=== PATIENT | male | born 1955 | race Caucasian/White ===

== ENCOUNTER 2020-11-13 07:29 | Outpatient (REF) | payer OTHER, SELFPAY ==
[2020-11-13 08:35] LABS: MANUAL DIFF FLAG NO
[2020-11-13 08:41] LABS: Basophils Percent Auto 0.4 % (0-2); Eosinophils Absolute Auto 0.1 X10*3/uL (0.0-0.4); Eosinophils Percent Auto 1.9 % (0-4); Hematocrit 42.2 % (42-52); Hemoglobin 13.8 g/dl (14.0-18.0); Imm Gran Abs Auto 0.01 X10*3/uL (0.00-0.03); Imm Gran Pct Auto 0.1 % (0.0-0.4); Lymphocytes Absolute Auto 2.4 X10*3/uL (1.2-4.9); Lymphocytes Percent Auto 33.9 % (20-40); Mean Corpuscular HGB Conc 32.7 g/dl (31.0-36.0); Mean Corpuscular Hemoglobin 31.3 pg (27.0-33.0); Mean Corpuscular Volume 95.7 fL (80-98); Mean Platelet Volume 9.2 fL (9.4-12.4); Monocytes Absolute Auto 0.5 X10*3/uL (0.1-1.2); Monocytes Percent Auto 7.2 % (2-11); Neutrophils Absolute Auto 3.9 X10*3/uL (2.0-8.3); Neutrophils Percent Auto 56.5 % (45-73); Platelet Count 229 X10*3/uL (160-400); Red Blood Count 4.41 X10*6/uL (4.60-5.80); Red Cell Distribution Width 12.3 % (11.0-16.0); White Blood Count 6.9 X10*3/uL (4.8-10.8)
[2020-11-13 09:02] LABS: Alanine Aminotransferase 11 U/L (0-40); Albumin Level 4.3 g/dL (3.5-5.0); Alkaline Phosphatase 87 U/L (39-117); Anion Gap 12 (12-20); Aspartate Amino Transferase 15 U/L (5-37); Bilirubin Direct 0.5 mg/dL (0.0-0.5); Blood Urea Nitrogen 15 mg/dL (9-16); Calcium 8.8 mg/dL (8.4-10.2); Carbon Dioxide 26 mmol/L (22-29); Chloride 105 mmol/L (96-108); Cholesterol 109 mg/dL; Estimated Glomerular Filt Rate > 60; Glucose Random 129 mg/dL (60-115); HDL Cholesterol 49 mg/dL; LDL Cholesterol Calculated 40 mg/dl; Potassium 4.4 mmol/l (3.3-5.1); Sodium 139 mmol/L (135-145); Total Protein 6.9 g/dL (6.5-8.0); Triglycerides 102 mg/dL
[2020-11-13 09:14] LABS: Estimated Average Glucose 126 mg/dL
== END 2020-11-13 07:30 | disposition home or self-care (01) ==
LOC: HO.LAB 07:29
PROVIDERS: Visit Provider Internal Medicine
DX: E11.9 Type 2 diabetes mellitus without complications (principal)
CPT/HCPCS: 36415; 80048; 80061; 80076; 83036; 85025

== ENCOUNTER 2021-04-23 07:34 | Outpatient (REF) | payer OTHER, SELFPAY ==
[2021-04-23 08:42] LABS: Hematocrit 42.6 % (42-52); Mean Corpuscular HGB Conc 32.9 g/dl (31.0-36.0); Mean Corpuscular Hemoglobin 31.2 pg (27.0-33.0); Mean Corpuscular Volume 94.9 fL (80-98); Mean Platelet Volume 9.2 fL (9.4-12.4); Platelet Count 243 X10*3/uL (160-400); Red Blood Count 4.49 X10*6/uL (4.60-5.80); Red Cell Distribution Width 12.9 % (11.0-16.0)
[2021-04-23 08:44] LABS: Estimated Average Glucose 126 mg/dL; Hemoglobin A1C 148.4077 umol/L
== END 2021-04-23 07:35 | disposition home or self-care (01) ==
LOC: HO.LAB 07:34
PROVIDERS: PCP Internal Medicine; Visit Provider Internal Medicine
DX: E11.9 Type 2 diabetes mellitus without complications (principal)
CPT/HCPCS: 36415; 83036; 85027

== ENCOUNTER 2021-08-29 14:08 | Outpatient (REF) | payer OTHER, SELFPAY ==
[2021-08-29 15:15] LABS: Anion Gap 12 (12-20); Blood Urea Nitrogen 14 mg/dL (9-16); Carbon Dioxide 25 mmol/L (22-29); Chloride 105 mmol/L (96-108); Estimated Glomerular Filt Rate > 60; Glucose Random 149 mg/dL (60-115); Potassium 4.5 mmol/L (3.3-5.1); Sodium 137 mmol/L (135-145)
== END 2021-08-29 14:09 | disposition home or self-care (01) ==
LOC: HO.LAB 14:08
PROVIDERS: Visit Provider Physician Assistant
DX: K11.20 Sialoadenitis, unspecified (principal); I88.9 Nonspecific lymphadenitis, unspecified
CPT/HCPCS: 36415; 80048

== ENCOUNTER 2021-11-02 08:08 | Outpatient (REF) | payer OTHER, SELFPAY ==
[2021-11-02 09:28] LABS: Appearance Urine CLEAR; Color Urine YELLOW; Glucose Urine UA >=1000 MG/DL (NEG); Leukocyte Esterase Urine NEG (NEG); Nitrite Urine NEG (NEG); Specific Gravity - Urine 1.015 (1.005-1.025); Urine Blood NEG (NEG); Urine Ketones NEG (NEG); Urine Protein NEG (NEG-TRACE)
[2021-11-02 09:37] LABS: RBC Urine 0 /HPF (0); WBC Urine 0 /HPF (0-4)
[2021-11-02 09:44] LABS: Creatinine Urine 68.47 mg/dL; Microalbumin Urine < 5.0 mg/L
[2021-11-02 09:54] LABS: Hematocrit 43.6 % (42.0-52.0); Hemoglobin 14.5 g/dl (14.0-18.0); Mean Corpuscular HGB Conc 33.3 g/dl (31.0-36.0); Mean Corpuscular Hemoglobin 32.1 pg (27.0-33.0); Mean Corpuscular Volume 96.5 fL (80.0-98.0); Mean Platelet Volume 9.1 fL (9.4-12.4); Platelet Count 223 X10*3/uL (160-400); Red Blood Count 4.52 X10*6/uL (4.60-5.80); Red Cell Distribution Width 12.2 % (11.0-16.0); White Blood Count 7.6 X10*3/uL (4.8-10.8)
[2021-11-02 10:26] LABS: Alanine Aminotransferase 15 U/L (0-40); Albumin Level 4.1 g/dL (3.5-5.0); Alkaline Phosphatase 100 U/L (39-117); Anion Gap 12 (12-20); Aspartate Amino Transferase 16 U/L (5-37); Bilirubin Direct 0.5 mg/dL (0.0-0.5); Bilirubin Total 1.3 mg/dL (0.0-1.0); Blood Urea Nitrogen 17 mg/dL (9-16); Carbon Dioxide 26 mmol/L (22-29); Chloride 104 mmol/L (96-108); Cholesterol 136 mg/dL; Estimated Glomerular Filt Rate > 60; Glucose Random 133 mg/dL (60-115); HDL Cholesterol 54 mg/dL; LDL Cholesterol Calculated 65 mg/dl; Potassium 4.4 mmol/L (3.3-5.1); Sodium 138 mmol/L (135-145); Triglycerides 85 mg/dL
[2021-11-02 10:38] LABS: Thyroid Stimulating Hormone 0.87 uIU/mL (0.32-4.0)
[2021-11-02 10:40] LABS: Estimated Average Glucose 140 mg/dL; Hemoglobin A1c % 6.5 %
== END 2021-11-02 08:09 | disposition home or self-care (01) ==
LOC: HO.LAB 08:08
PROVIDERS: PCP Internal Medicine; Visit Provider Internal Medicine
DX: E11.9 Type 2 diabetes mellitus without complications (principal)
CPT/HCPCS: 36415; 80048; 80061; 80076; 81001; 82043; 83036; 84443; 85027

== ENCOUNTER 2021-12-17 19:26 | Emergency (ER) | payer OTHER, SELFPAY ==
--- NOTE | ~2021-12-17 | CT_ITS ---
EXAMINATION: CT SOFT TISSUE NECK WITH CONTRAST CLINICAL INFORMATION: Neck swelling. Evaluate for infection or abscess. COMPARISON: None TECHNIQUE: Following the intravenous administration of 80 mL of Omnipaque 350 intravenous contrast, helical imaging was performed in the axial plane with generation of coronal and sagittal reformatted images. This CT examination was performed using dose optimization techniques as appropriate, variously including the following: *Automated exposure control *Adjustment of mA and/or kV according to patient size (this includes techniques or standardized protocols for targeted exams where dose is matched to indication/reason for exam; i.e. extremities or head) *Use of iterative reconstruction technique DLP: 1063 mGy-cm FINDINGS: There is skin thickening and subcutaneous fat stranding in the bilateral submandibular regions extending inferiorly through the anterior neck. There is accompanying thickening of the platysma. No fluid collection to suggest abscess formation. There is also mild fat stranding deep to the platysma musculature with interstitial edema of the bilateral mandibular glands. Minimal interstitial edema involves the bilateral parotid glands. Deep spaces of the neck are symmetric. The parapharyngeal fat is preserved. No retropharyngeal fluid collection is seen. No cervical adenopathy is identified. No contour abnormality or pathologic enhancement is seen within the oral cavity or pharyngeal mucosal space. There is a 5 mm nodule lateral to the left aryepiglottic fold The carotid sheath vasculature opacify normally. No extra mucosal soft tissue mass or fluid collection is seen. The thyroid gland is normal. The superior mediastinum is unremarkable. The lung apices are clear. Mastoid air cells are clear. Minimal mucous retention within the inferior alveolar recess of the right maxillary sinus. Remainder of the paranasal sinuses are clear. The temporomandibular joints are normal. No periapical disease is identified. No osseous abnormalities are seen. The imaged portions of the brain parenchyma are unremarkable. CT/CT soft tissue neck w con IMPRESSION: * No evidence of abscess formation within the neck. * There is interstitial edema with bilateral parotid and submandibular glands suggestive of sialoadenitis, with associated mild fat stranding. Given the bilaterally symmetric findings, consider systemic etiologies such as viral and autoimmune conditions. * There is thickening of the platysma musculature and subcutaneous fat stranding within the bilateral submandibular regions and extending inferiorly through the anterior neck with overlying skin thickening. This may be reactive. * Incidental 5 mm nodular mass lateral to the left aryepiglottic fold. Recommend laryngitis before further evaluation. This result was discussed with Dr Jaime Higgins at 12/18/2021 2:45 AM and it was ascertained that the content and urgency of the report was understood at the time of direct communication.
[2021-12-17 19:48] VITALS: BP 157/76; PULSE 92; RESP 16; TEMP 36.6; O2SAT 98; BMI 48.9
--- NOTE | 2021-12-18 00:43 | ED_ITS ---
HPI - General Adult General Chief complaint: Extremity Problem Stated complaint: Neck swelling Time Seen by Provider: 12/18/21 00:36 Source: patient Mode of arrival: ambulatory Limitations: no limitations History of Present Illness HPI narrative: 66 years old male came in for evaluation of neck swelling. Patient started to notice swelling of his neck 2 days ago, no fever chills, no dental infection. declined any difficulty breathing or difficulty swallowing, able to swallow his saliva. Patient was seen at an urgent care today and was sent to the ER for further evaluation of neck infection. Patient was prescribed Augmentin by the urgent care. Related Data Previous Rx's Medication Instructions Recorded aspirin 81 mg tablet,delayed 81 mg PO DAILY #90 tab 10/20/20 release blood sugar diagnostic (FreeStyle #100 ea 12/05/20 Lite Strips) lisinopril 2.5 mg tablet 2.5 mg PO DAILY #90 tab 06/10/21 tamsulosin 0.4 mg capsule 0.4 mg PO DAILY #90 cap 06/10/21 atorvastatin 10 mg tablet 10 mg PO BEDTIME #90 tab 06/14/21 dapagliflozin 10 mg-metformin ER 1 tab PO DAILY #90 ea 11/15/21 1,000 mg tablet,extended release 24hr (Xigduo XR) omeprazole 20 mg tablet,delayed 20 mg PO DAILY #90 tab 11/15/21 release Allergies Allergy/AdvReac Type Severity Reaction Status Date / Time No Known Allergies Allergy Verified 08/29/21 13:24 Review of Systems Review of Systems: All other systems are reviewed and are negative Constitutional: Reports as per HPI and Reports no additional constitutional complaints Eyes: Reports as per HPI and Reports no additional eye complaints Reports system reviewed and no additional complaints, except as documented Cardiovascular: Reports as per HPI and Reports no additional cardiovascular complaints Respiratory: Reports as per HPI and Reports no additional respiratory complaints Gastrointestinal: Reports as per HPI and Reports no additional gastrointestinal complaints Genitourinary: Reports no additional female genitourinary complaints Musculoskeletal: Reports no additional musculoskeletal complaints Skin/Breast: Reports system reviewed and no additional complaints, except as docu Psychiatric: Reports no additional psychiatric complaints Endocrine: Reports no additional endocrine complaints Hematologic/Lymphatic: Reports no additional hematologic/lymphatic complaints Allergic/Immunologic: Reports no additional allergic/immunologic complaints Reports system reviewed and no additional complaints, except as documented and Reports Abnormal speech present [facility] Past Medical History Medical History Essential hypertension Hypercholesterolemia Type 2 diabetes mellitus without complication Surgical History History of colonoscopy History of knee replacement procedure of right knee History of total left knee replacement Family History Family History Father Prostate cancer Mother No problems noted. Social History Social History Housing: House Alcohol intake: current Alcohol intake frequency: a few times a week Patient Tobacco Use Status: Former Tobacco user e-Cigarette/Vaping Use: Never Used Use of substances other than those prescribed or required for medical reasons: No Advance Directives: No Advance Directives Information Provided: No service: No Current occupational status: employed and retired Physical Exam ED Vital Signs: Vital Signs - 24 hr 12/17/21 19:48 12/18/21 00:50 12/18/21 02:18 Temperature 97.8 F 98.2 F 98.1 F Pulse Rate 92 83 81 Respiratory Rate 16 18 18 Blood Pressure 157/76 H 135/75 130/67 Pulse Oximetry 98 97 97 BMI result Body Mass Index 48.9 vital signs have been reviewed as appeared to be correct. Blood pressure nor mal. Heart rate normal. Respiration rate normal. Temperature normal. Oxygen saturation normal. Appearance: Alert. Oriented X3. No acute distress. Head: Normal external exam. Normocephalic. Atraumatic. No Li signs noted. No raccoon eyes noted Eyes: PERRLA. EOMI. Conjunctiva and sclera normal. Eyelids normal. ENT: TM's Normal. Patient is morbidly obese limited exam, Pharynx normal. Uvula midline. Moist mucous membranes. No trismus noted. No drooling noted. No muffled voice noted. Neck: Normal inspection. Neck supple. FROM. No adenopathy. Thyroid Normal. No meningeal signs. No neck mass noted. CVS: Normal heart rate and rhythm. Heart sound normal. No murmurs noted. Pulses normal throughout. Respiratory: No respiratory distress. Painless inspiration. Breath sounds normal. No wheezes/rales/rhonchi noted. Chest nontender. No accessory muscle usage noted or decreased air movement noted. Abdomen: Soft and nontender. Bowel sounds normal in all 4 quadrants. No distention noted. No organomegaly noted. No visible injury noted. Back: No CVA tenderness. Full range of motion noted. Skin: Skin warm and dry. Normal skin color. Normal skin turgor. No rashes/lesions/lacerations noted. Extremities: No lower extremity edema. Extremities exhibit normal range of motion. Extremities nontender. Neuro: Oriented X 3. Cranial nerve exam: II-XII are grossly intact No motor deficit. No sensory deficit. Reflexes normal. Course Course Course Narrative: Assessment and plan. 66 years old male came in with symmetric neck swelling, not appreciated on physical exam because of body habitus and patient's obesity. Patient was prescribed Augmentin to take twice a day. CT showing nonspecific fat stranding in the neck area suggesting sialoadenitis which is symmetric bilaterally. 5 mm nonspecific nodule on the left lower neck is which will need ENT evaluation as an outpatient. All the above finding were discussed with the patient. Medical Decision Making Lab Data Lab results reviewed: Yes I reviewed the patient's lab results. Result diagrams: 12/18/21 00:49 12/18/21 00:49 Labs: Lab Results 12/18/21 12/18/21 Range/Units 00:49 00:49 WBC 10.6 (4.8-10.8) X10*3/uL RBC 4.38 L (4.60-5.80) X10*6/uL Hgb 14.2 (14.0-18.0) g/dl Hct 42.3 (42.0-52.0) % MCV 96.6 (80.0-98.0) fL MCH 32.4 (27.0-33.0) pg MCHC 33.6 (31.0-36.0) g/dl RDW 12.3 (11.0-16.0) % Plt Count 218 (160-400) X10*3/uL MPV 8.7 L (9.4-12.4) fL Immature Gran % (Auto) 0.3 (0.0-0.4) % Neut % (Auto) 62.0 (45-73) % Lymph % (Auto) 26.7 (20-40) % [place] % (Auto) 8.5 (2-11) % Eos % (Auto) 2.2 (0-4) % Baso % (Auto) 0.3 (0-2) % Lymph # (Auto) 2.8 (1.2-4.9) X10*3/uL [place] # (Auto) 0.9 (0.1-1.2) X10*3/uL Eos # (Auto) 0.2 (0.0-0.4) X10*3/uL Baso # (Auto) 0.0 (0.0-0.2) X10*3/uL Abs Immat Gran (auto) 0.03 (0.00-0.03) X10*3/uL Absolute Neuts (auto) 6.6 (2.0-8.3) x10*3/uL Absolute Nucleated RBC 0.000 (0.0-0.012) X10*3/uL Nucleated RBC % (auto) 0.0 (0.0-0.2) /100WBC Sodium 140 (135-145) mmol/L Potassium 4.6 (3.3-5.1) mmol/L Chloride 106 (96-108) mmol/L Carbon Dioxide 27 (22-29) mmol/L Anion Gap 12 (12-20) BUN 21 H (9-16) mg/dL Creatinine 0.89 (0.5-1.4) mg/dL Estim Creat Clear Calc 98.0 Estimated GFR > 60 Random Glucose 139 H (60-115) mg/dL Calcium 9.3 (8.4-10.2) mg/dL Total Bilirubin 1.0 (0.0-1.0) mg/dL Direct Bilirubin 0.4 (0.0-0.5) mg/dL AST 12 (5-37) U/L ALT 9 (0-40) U/L Alkaline Phosphatase 106 (39-117) U/L Total Protein 7.2 (6.5-8.0) g/dL Albumin 4.2 (3.5-5.0) g/dL Lipase 35 (8-78) U/L Imaging Data Soft tissue CT : Attestation: I personally reviewed and interpreted this imaging study as follows: Radiologist's impression: *? No evidence of abscess formation within the neck. *? There is interstitial edema with bilateral parotid and submandibular glands suggestive of sialoadenitis, with associated mild fat stranding. Given the bilaterally symmetric findings, consider systemic etiologies such as viral and autoimmune conditions. *? There is thickening of the platysma musculature and subcutaneous fat stranding within the bilateral submandibular regions and extending inferiorly through the anterior neck with overlying skin thickening. This may be reactive. *? Incidental 5 mm nodular mass lateral to the left aryepiglottic fold. Recommend laryngitis before further evaluation. Discharge Plan Discharge Clinical Impression: Acute sialoadenitis, Laryngeal mass Patient Disposition: Home, Self-Care Instructions: Sialoadenitis (ED) Prescriptions: No Action aspirin 81 mg tablet,delayed release (DR/EC) 81 mg PO DAILY Qty: 90 1RF (DME) FreeStyle Lite Strips Strip See Rx Instructions .ROUTE .MEDSUPPLY Qty: 100 1RF Rx Instructions: Once a day lisinopril 2.5 mg tablet 2.5 mg PO DAILY Qty: 90 3RF tamsulosin 0.4 mg capsule 0.4 mg PO DAILY Qty: 90 3RF atorvastatin 10 mg tablet 10 mg PO BEDTIME Qty: 90 3RF Xigduo XR 10-1,000 mg tablet, IR - ER, biphasic 24hr 1 tab PO DAILY Qty: 90 1RF omeprazole 20 mg tablet,delayed release (DR/EC) 20 mg PO DAILY Qty: 90 1RF Referrals: Physician,Unknown J [Primary Care Provider] - 2 days
[2021-12-18 00:50] VITALS: BP 135/75; PULSE 83; RESP 18; TEMP 36.8; O2SAT 97
[2021-12-18 00:53] LABS: MANUAL DIFF FLAG NO
[2021-12-18 00:54] LABS: Basophils Percent Auto 0.3 % (0-2); Eosinophils Absolute Auto 0.2 X10*3/uL (0.0-0.4); Eosinophils Percent Auto 2.2 % (0-4); Hematocrit 42.3 % (42.0-52.0); Hemoglobin 14.2 g/dl (14.0-18.0); Imm Gran Abs Auto 0.03 X10*3/uL (0.00-0.03); Imm Gran Pct Auto 0.3 % (0.0-0.4); Lymphocytes Absolute Auto 2.8 X10*3/uL (1.2-4.9); Lymphocytes Percent Auto 26.7 % (20-40); Mean Corpuscular HGB Conc 33.6 g/dl (31.0-36.0); Mean Corpuscular Hemoglobin 32.4 pg (27.0-33.0); Mean Corpuscular Volume 96.6 fL (80.0-98.0); Mean Platelet Volume 8.7 fL (9.4-12.4); Monocytes Absolute Auto 0.9 X10*3/uL (0.1-1.2); Monocytes Percent Auto 8.5 % (2-11); Neutrophils Absolute Auto 6.6 x10*3/uL (2.0-8.3); Platelet Count 218 X10*3/uL (160-400); Red Blood Count 4.38 X10*6/uL (4.60-5.80); Red Cell Distribution Width 12.3 % (11.0-16.0); White Blood Count 10.6 X10*3/uL (4.8-10.8)
[2021-12-18 01:17] LABS: Alanine Aminotransferase 9 U/L (0-40); Albumin Level 4.2 g/dL (3.5-5.0); Alkaline Phosphatase 106 U/L (39-117); Anion Gap 12 (12-20); Aspartate Amino Transferase 12 U/L (5-37); Bilirubin Direct 0.4 mg/dL (0.0-0.5); Blood Urea Nitrogen 21 mg/dL (9-16); Calcium 9.3 mg/dL (8.4-10.2); Carbon Dioxide 27 mmol/L (22-29); Chloride 106 mmol/L (96-108); Estimated Glomerular Filt Rate > 60; Glucose Random 139 mg/dL (60-115); Lipase 35 U/L (8-78); Potassium 4.6 mmol/L (3.3-5.1); Sodium 140 mmol/L (135-145); Total Protein 7.2 g/dL (6.5-8.0)
--- NOTE | 2021-12-18 01:24 | PC.NURSE ---
I assumed care of this pt upon his arrival to bed 1 from the waiting room. On arrival the pt is alert and oriented x 3, presents for evaluation of neck swelling x 2-3 days. He states he first went to an urgent care and was subsequently advised to come to the E.D.. He also states he was prescribed a PO antibiotic and he has taken the first dose at home. There is obvious swelling to his chin/neck. No redness. +tenderness. He denies difficulty swallowing. There is no tongue or uvular swelling. No hoarseness. No shortness of breath. He is speaking in full sentences. IV access/labs obtained. Pt is aware that he will have a CT neck/soft tissue and verbalizes an understanding of this. Will continue to monitor Rito.
[2021-12-18 02:18] VITALS: BP 130/67; PULSE 81; RESP 18; TEMP 36.7; O2SAT 97
[2021-12-18] MEDS: iohexoL 350 MG/ML 100 ML INFUS..BTL 80 ML IV (02:19)
== END 2021-12-18 03:35 | disposition home or self-care (01) ==
PROVIDERS: Emergency Provider Emergency Medicine
DX: K11.21 Acute sialoadenitis (principal); J38.7 Other diseases of larynx; I10 Essential (primary) hypertension; E11.9 Type 2 diabetes mellitus without complications; E78.00 Pure hypercholesterolemia, unspecified; E66.01 Morbid (severe) obesity due to excess calories; Z79.82 Long term (current) use of aspirin; Z79.02 Long term (current) use of antithrombotics/antiplatelets
CPT/HCPCS: 36415; 70491; 80048; 80076; 83690; 85025; 99284; Q9967

== ENCOUNTER 2022-04-02 06:38 | Day surgery (SDC) | payer OTHER, SELFPAY ==
--- NOTE | 2022-03-29 09:42 | HO.ANESPROP2 ---
Documented by User: Ghazala Gallego NP 03/29/22 09:44 HPI - Anesthesia Eval Consult details Narrative: 67yo M for Colonoscopy PMFSH Active Problems Active Problems: All Active Problems (Updated 03/26/22 @ 14:18 by Radha Hung, TONI) Parotiditis (Acute) Cervical lymphadenitis (Acute) Screening for colon cancer (Acute) Class 2 severe obesity with body mass index (BMI) of 35 to 39.9 with serious comorbidity (Acute) Annual physical exam (Acute) Acute sialoadenitis (Acute) Laryngeal mass (Acute) Essential hypertension (Acute) Hypercholesterolemia (Acute) Type 2 diabetes mellitus without complication (Acute) Past Medical History Medical History BPH (benign prostatic hyperplasia) Essential hypertension Hypercholesterolemia Low serum testosterone level Type 2 diabetes mellitus without complication Family History Family History Father Prostate cancer Mother No problems noted. Surgical History Surgical History History of colonoscopy History of knee replacement procedure of right knee History of total left knee replacement Social History Social History Housing: House Alcohol intake: current Alcohol intake frequency: a few times a week Patient Tobacco Use Status: Former Tobacco user e-Cigarette/Vaping Use: Never Used Have you been hit, kicked, punched, or otherwise hurt by someone within the past year? If so, by whom?: No Advance Directives: No Advance Directives Information Provided: Yes Recently lost weight without trying: No Nutrition Risks: No Nutritional Risk Poor oral hygiene: No service: No Current occupational status: employed and retired Meds Allergies Allergy/AdvReac Type Severity Reaction Status Date / Time No Known Allergies Allergy Verified 03/26/22 14:23 Exam Exam Date and Time: March 29, 2022 0942 Pertinent Lab Results Pertinent Lab Results: Laboratory Tests 12/18/21 12/18/21 00:49 00:49 WBC 10.6 Hgb 14.2 Hct 42.3 Plt Count 218 Sodium 140 Potassium 4.6 Chloride 106 Carbon Dioxide 27 BUN 21 H Creatinine 0.89 Assessment and Plan Assessment Anesthesia Assessment: Chart Reviewed Documented by User: Shahnaz Dunn MD 04/02/22 08:24 PMFSH Active Problems Active Problems: All Active Problems (Updated 03/26/22 @ 14:18 by Radha Hung, TONI) Parotiditis (Acute) Cervical lymphadenitis (Acute) Screening for colon cancer (Acute) Class 2 severe obesity with body mass index (BMI) of 35 to 39.9 with serious comorbidity (Acute) Annual physical exam (Acute) Acute sialoadenitis (Acute) Laryngeal mass (Acute) Essential hypertension (Acute) Hypercholesterolemia (Acute) Type 2 diabetes mellitus without complication (Acute) KRISTYN. Does not use CPAP machine Past Medical History Medical History BPH (benign prostatic hyperplasia) Essential hypertension Hypercholesterolemia Low serum testosterone level Type 2 diabetes mellitus without complication Family History Family History Father Prostate cancer Mother No problems noted. Family history of problems with anesthesia: No Surgical History Surgical History History of colonoscopy History of knee replacement procedure of right knee History of total left knee replacement History of Problems with Anesthesia: No Social History Social History Housing: House Alcohol intake: current Alcohol intake frequency: a few times a week Patient Tobacco Use Status: Former Tobacco user e-Cigarette/Vaping Use: Never Used Have you been hit, kicked, punched, or otherwise hurt by someone within the past year? If so, by whom?: No Advance Directives: No Advance Directives Information Provided: Yes Recently lost weight without trying: No Nutrition Risks: No Nutritional Risk Poor oral hygiene: No service: No Current occupational status: employed and retired Meds Allergies Allergy/AdvReac Type Severity Reaction Status Date / Time No Known Allergies Allergy Verified 03/26/22 14:23 Exam Height,Weight and Vital Signs: Height 5 ft 4 in Weight 129.274 kg Vital Signs Temp Pulse Resp BP Pulse Ox 04/02/22 07:18 97.1 F 82 18 135/63 97 Pertinent Lab Results Pertinent Lab Results: Laboratory Tests 12/18/21 12/18/21 00:49 00:49 WBC 10.6 Hgb 14.2 Hct 42.3 Plt Count 218 Sodium 140 Potassium 4.6 Chloride 106 Carbon Dioxide 27 BUN 21 H Creatinine 0.89 POC 127 Airway Mallampati Class: III TM Dist: >3cm Neck ROM: Full (Short neck. Increased circumference ) Partial: Upper Heart: RRR Lungs: CTAB Assessment and Plan Assessment Anesthesia Assessment: Anesthesia Plan Discussed Final Anesthetic Review Family History of Problems with Anesthesia: No History of Problems with Anesthesia: No NPO: Yes ASA Class: III Final Preanesthetic Review: No Changes in Pt Med Stat, Meds/Allgs Chart Reviewed, Consent Obtained/Reviewed and Anes Risks/Benef Reviewed Patient Risk: Intermediate Procedure Risk: Low Assessment/Block/Sedation in SS: Assess/Block/Sedation-SS Anesthetic Plan Anesthetic Plan: MAC: Disposition: Standard PACU
[2022-04-02 06:53] VITALS: BMI 48.9
[2022-04-02 07:18] VITALS: BP 135/63; PULSE 82; RESP 18; TEMP 36.2; O2SAT 97
--- NOTE | 2022-04-02 07:58 | MHC.SHP ---
Pre-Procedural Eval Section A Date of Service: 04/02/22 Section B Chief Complaint: screening Details of Present Illness: see H&P no changes Relevant Family History (Specify if Yes): No Relevant Social History: None Present Medications: see Short Stay Collaborative assessment Medical History: No relevant PMH History of Previous Operations: No relevant previous surgery Allergies: Allergies Allergy/AdvReac Type Severity Reaction Status Date / Time No Known Allergies Allergy Verified 03/26/22 14:23 Exam Surgical H&P Exam: Normal: HEENT, Normal: Heart, Normal: Lungs, Normal: Extremities, Normal: Abdomen, Normal: Skin and Normal: Neurological Plan Diagnosis/Plan: Unchanged I have reviewed the history and physical and performed a pertinent physical examination on my patient. No changes have occurred unless specified.
--- NOTE | 2022-04-02 08:32 | P.BOP_ITS ---
Brief Operative Note Date of Service: 04/02/22 Pre-op diagnosis: screening Post-op diagnosis: same Procedure: colonoscopy Surgeon: Eliezer Denney Anesthesia: MAC Was an Secretary Receptionist used for this Procedure?: No Estimated blood loss (mL): 0 Pathology: none sent Condition: stable Disposition: PACU
[2022-04-02 08:35] VITALS: BP 112/63; PULSE 79; RESP 17; TEMP 37.2; O2SAT 95
--- NOTE | 2022-04-02 08:48 | OP_ITS ---
SURGEON: Eliezer Denney MD INDICATIONS: Colon cancer screening. PREOPERATIVE DIAGNOSIS: POSTOPERATIVE DIAGNOSIS: PROCEDURE PERFORMED: Colonoscopy to the cecum. ESTIMATED BLOOD LOSS: COMPLICATIONS: ANESTHESIA: ASSISTANTS: SPECIMENS: MEDICATIONS: Monitored anesthesia care. DESCRIPTION OF PROCEDURE: History and physical performed. The risks and benefits of the procedure were explained to the patient and informed consent was obtained. The patient was placed in the left lateral decubitus position. A digital rectal exam was performed and was found to be normal. The Olympus pediatric video colonoscope was introduced into the rectum and advanced to the cecum without difficulty. Abdominal wall pressure was used to assist in advancement of the scope. The cecum was identified by transillumination, palpation, and identification of the ileocecal valve. Examination was performed. The scope was removed. He tolerated the procedure well and was taken to the recovery area in stable condition. FINDINGS: The terminal ileum was not examined. The visualized colonic mucosa was within normal limits. There was a mild amount of liquid stool, which was washed and suctioned. There was mild sigmoid diverticular disease. There were several hyperplastic appearing polyps in the rectum measuring less than 10 mm. These had been previously biopsied on his last exam and were not biopsied. Retroflexed examination showed some small internal hemorrhoids. IMPRESSION: Normal colonoscopy. RECOMMENDATION: 1. Follow up as needed. 2. Repeat colonoscopy is recommended in 10 years for average risk individuals. MD DAYAN Greene/ELIEL / [id number]
[2022-04-02 08:50] VITALS: BP 120/66; PULSE 72; RESP 18; TEMP 36.7; O2SAT 96
[2022-04-02 09:29] LABS: Glucose, Whole Blood 127 mg/dL (60-115)
== END 2022-04-02 09:07 | disposition home or self-care (01) ==
PROVIDERS: Visit Provider Internal Medicine Gastroenterology
PROC: 0DJD8ZZ Inspection of Lower Intestinal Tract, Via Natural or Artificial Opening Endoscopic (ICD-10-PCS; CPT 45378; principal; 2022-04-02 08:10)
DX: Z12.11 Encounter for screening for malignant neoplasm of colon (principal); K57.30 Diverticulosis of large intestine without perforation or abscess without bleeding; K62.1 Rectal polyp; K64.8 Other hemorrhoids; K21.9 Gastro-esophageal reflux disease without esophagitis; N40.0 Benign prostatic hyperplasia without lower urinary tract symptoms; E78.00 Pure hypercholesterolemia, unspecified; G47.33 Obstructive sleep apnea (adult) (pediatric); Z79.84 Long term (current) use of oral hypoglycemic drugs; Z79.899 Other long term (current) drug therapy; Z96.652 Presence of left artificial knee joint; Z80.42 Family history of malignant neoplasm of prostate
CPT/HCPCS: 45378; 82947

== ENCOUNTER 2022-05-17 07:07 | Outpatient (REF) | payer OTHER, SELFPAY ==
[2022-05-17 08:14] LABS: Hematocrit 42.4 % (42.0-52.0); Mean Corpuscular Hemoglobin 32.1 pg (27.0-33.0); Mean Corpuscular Volume 97.2 fL (80.0-98.0); Mean Platelet Volume 9.1 fL (9.4-12.4); Platelet Count 217 X10*3/uL (160-400); Red Blood Count 4.36 X10*6/uL (4.60-5.80); Red Cell Distribution Width 12.4 % (11.0-16.0); White Blood Count 6.6 X10*3/uL (4.8-10.8)
[2022-05-17 08:19] LABS: Estimated Average Glucose 154 mg/dL
[2022-05-17 08:50] LABS: Alanine Aminotransferase 19 U/L (0-40); Albumin Level 4.1 g/dL (3.5-5.0); Alkaline Phosphatase 92 U/L (39-117); Anion Gap 13 (12-20); Aspartate Amino Transferase 24 U/L (5-37); Bilirubin Direct 0.5 mg/dL (0.0-0.5); Bilirubin Total 1.3 mg/dL (0.0-1.0); Blood Urea Nitrogen 15 mg/dL (9-16); Calcium 8.8 mg/dL (8.4-10.2); Carbon Dioxide 25 mmol/L (22-29); Chloride 104 mmol/L (96-108); Cholesterol 121 mg/dL; Estimated Glomerular Filt Rate > 60; Glucose Random 156 mg/dL (60-115); HDL Cholesterol 50 mg/dL; LDL Cholesterol Calculated 51 mg/dl; Potassium 4.6 mmol/L (3.3-5.1); Sodium 137 mmol/L (135-145); Total Protein 6.9 g/dL (6.5-8.0); Triglycerides 103 mg/dL
[2022-05-17 09:58] LABS: Creatinine Urine 68.05 mg/dL; Microalbumin Urine < 5.0 mg/L
== END 2022-05-17 07:08 | disposition home or self-care (01) ==
LOC: HO.LAB 07:07
PROVIDERS: PCP Internal Medicine; Visit Provider Internal Medicine
DX: E66.01 Morbid (severe) obesity due to excess calories (principal); E78.00 Pure hypercholesterolemia, unspecified; I10 Essential (primary) hypertension; E11.9 Type 2 diabetes mellitus without complications
CPT/HCPCS: 36415; 80048; 80061; 80076; 82043; 83036; 84443; 85027

== ENCOUNTER 2022-11-12 07:31 | Outpatient (REF) | payer OTHER, SELFPAY ==
[2022-11-12 08:27] LABS: Hematocrit 44.4 % (42.0-52.0); Hemoglobin 14.7 g/dl (14.0-18.0); Mean Corpuscular HGB Conc 33.1 g/dl (31.0-36.0); Mean Corpuscular Hemoglobin 31.8 pg (27.0-33.0); Mean Corpuscular Volume 96.1 fL (80.0-98.0); Platelet Count 267 X10*3/uL (160-400); Red Blood Count 4.62 X10*6/uL (4.60-5.80); Red Cell Distribution Width 11.7 % (11.0-16.0); White Blood Count 7.7 X10*3/uL (4.8-10.8)
[2022-11-12 08:50] LABS: Alanine Aminotransferase 8 U/L (0-40); Alkaline Phosphatase 96 U/L (39-117); Anion Gap 15 (12-20); Aspartate Amino Transferase 13 U/L (5-37); Bilirubin Direct 0.5 mg/dL (0.0-0.5); Bilirubin Total 1.3 mg/dL (0.0-1.0); Blood Urea Nitrogen 15 mg/dL (9-16); Carbon Dioxide 24 mmol/L (22-29); Chloride 106 mmol/L (96-108); Cholesterol 100 mg/dL; Estimated Glomerular Filt Rate > 60; Glucose Random 146 mg/dL (60-115); HDL Cholesterol 38 mg/dL; LDL Cholesterol Calculated 46 mg/dl; Potassium 4.6 mmol/L (3.3-5.1); Sodium 140 mmol/L (135-145); Total Protein 6.9 g/dL (6.5-8.0); Triglycerides 80 mg/dL
[2022-11-12 09:08] LABS: Thyroid Stimulating Hormone 0.43 uIU/mL (0.32-4.0)
== END 2022-11-12 07:32 | disposition home or self-care (01) ==
LOC: HO.LAB 07:31
PROVIDERS: PCP Internal Medicine; Visit Provider Internal Medicine
DX: I10 Essential (primary) hypertension (principal)
CPT/HCPCS: 36415; 80048; 80061; 80076; 84443; 85027

== ENCOUNTER 2023-02-07 07:16 | Outpatient (REF) | payer OTHER, SELFPAY ==
[2023-02-07 08:05] LABS: Estimated Average Glucose 143 mg/dL; Hemoglobin A1c % 6.6 %
== END 2023-02-07 07:17 | disposition home or self-care (01) ==
LOC: HO.LAB 07:16
PROVIDERS: PCP Internal Medicine; Visit Provider Internal Medicine
DX: E11.9 Type 2 diabetes mellitus without complications (principal)
CPT/HCPCS: 36415; 83036

== ENCOUNTER 2023-05-12 07:37 | Outpatient (REF) | payer OTHER, SELFPAY | END 2023-05-12 07:38 | disposition home or self-care (01) | LOC: HO.LAB 07:37 | PROVIDERS: PCP Internal Medicine; Visit Provider Internal Medicine | DX: E11.9 Type 2 diabetes mellitus without complications (principal); E66.01 Morbid (severe) obesity due to excess calories | CPT/HCPCS: 36415; 80048; 80061; 80076; 81001; 82043; 83036; 84443; 85027 ==

== ENCOUNTER 2023-05-22 07:43 | Outpatient (AMB) | payer OTHER, SELFPAY ==
[2023-05-22 07:46] VITALS: BP 134/72; PULSE 79; O2SAT 97; BMI 51.1
--- NOTE | 2023-05-22 07:46 | MHC.PC.OV ---
Vital Signs 05/22/23 07:46 Height 5 ft 4 in Weight 298 lb BMI 51.1 BP 134/72 Blood Pressure Location Lt brachial Position Sitting Pulse 79 Pulse Source Pulse Oximeter Pulse Oximetry (%) 97 Oxygen Delivery Method Room Air Intake Visit Reasons: 6mth f/u Allergies No Known Allergies Allergy (Verified 05/22/23 08:24) Medication List - Last Reconciled 05/22/23 by Trevon Jerez MD aspirin 81 mg PO DAILY atorvastatin 10 mg PO BEDTIME blood sugar diagnostic (FreeStyle Lite Strips) Once a day dapagliflozin-metformin 10-1,000 mg ER (Xigduo XR) 1 tab PO DAILY lisinopril 2.5 mg PO DAILY omeprazole 20 mg PO DAILY tamsulosin 0.4 mg PO DAILY Tobacco use date assessed: 11/19/22 Fall risk assessment: No Falls in past year Last assessed Fall Risk: 05/22/23 Dental Screening Dental Screen Date: 05/22/23 Did you have a dental visit in the last 12 months?: No Did you have a dental problem in the last 6 months where you did not have access to dental care?: No Was dental information given to patient?: Patient has dentist HPI 6mth f/u HPI Details 68-year-old male presents to the office to discuss his chronic medical conditions. For the last month patient has noticed a slight elevation in the fasting blood sugar. It varies from 150-190. He has been on the current medications since last office visit. His insurance company is not authorizing PPI. Not compliant with exercise or diet. [facility] Medical History BPH (benign prostatic hyperplasia) Class 2 severe obesity with body mass index (BMI) of 35 to 39.9 with serious comorbidity Essential hypertension Hypercholesterolemia Low serum testosterone level Type 2 diabetes mellitus without complication Surgical History History of colonoscopy History of knee replacement procedure of right knee History of total left knee replacement Family History Father Prostate cancer Mother No problems noted. Social History Housing: House Alcohol intake: current Alcohol intake frequency: a few times a week Patient Tobacco Use Status: Former Tobacco user Tobacco use type: Cigarette e-Cigarette/Vaping Use: Never Used Second Hand Smoke Exposure: No service: No Current occupational status: employed and retired Cognitive needs: No Hearing needs: No Vision needs: No Questionnaire PHQ-9 Over the last 2 weeks, how often have you been bothered by any of the following problems? 1. Little interest or pleasure in doing things: not at all 2. Feeling down, depressed, or hopeless: not at all 3. Trouble falling or staying asleep, or sleeping too much: not at all 4. Feeling tired or having little energy: not at all 5. Poor appetite or overeating: not at all 6. Feeling bad about yourself - or that you are a failure or have let yourself or your family down: not at all 7. Trouble concentrating on things, such as reading the newspaper or watching television: not at all 8. Moving or speaking so slowly that other people could have noticed. Or the opposite - being so fidgety or restless that you have been moving around a lot more than usual: not at all 9. Thoughts that you would be better off or of hurting yourself in some way: not at all Total score: 0 Depression Screening Interpretation: Negative Source: Developed by Drs. Zain Mcmullen, Zita Zee, Conner Vickers and colleagues, with an educational nicky from [employer]. Thrive Questionnaire Date Thrive assessed: 11/19/22 AUDIT C Alcohol Use Questionnaire (AUDIT-C) 1. How often do you have a drink containing alcohol?: 2-4 times a month 2. How many drinks containing alcohol do you have on a typical day when you are drinking?: 3 or 4 Total Score: 3 Score Reviewed/Action Taken: Yes OUSMANE-7 AMB Questionnaire OUSMANE-7 Date OUSMANE - 7 assessed: 11/19/22 Source: Developed by Drs. Zain Mcmullen, Conner Lewis and colleagues, with an educational nicky from [employer]. Physical exam (Primary Care) Vital Signs: Last Vital Signs Pulse 79 05/22/23 07:46 BP 134/72 05/22/23 07:46 Pulse Ox 97 05/22/23 07:46 Oxygen Delivery Method Room Air 05/22/23 07:46 Care Plan Goal for BP management: Blood pressure is in range. Continue current medications. BMI result Body Mass Index 51.1 BMI Assessment/Plan discussion: High (1 lb per week weight loss suggested.) BMI High, discussed plan: lifestyle, weight reduction and dietary Tobacco/Smoking Status: Tobacco use Status Tobacco use date assessed 11/19/22 05/22/23 07:51 Patient Tobacco Use Status Former Tobacco user 05/22/23 07:51 Tobacco use type Cigarette 05/22/23 07:51 e-Cigarette/Vaping Use Never Used 05/22/23 07:51 PHQ-9: PHQ-9 Score PHQ-9: Total score 0 05/22/23 07:51 Depression Screening Interpretation: Negative Thrive Assessment: Date of Thrive Assessment Date Thrive assessed 11/19/22 05/22/23 07:51 Const General: cooperative, healthy appearing and comfortable HENMT Head: Yes normal to inspection and Yes atraumatic Eyes General: appearance normal, both eyes and all related structures Neck Neck: Yes normal visual inspection and Yes full ROM Chest Chest palpation & inspection: normal inspection of the chest Resp Effort & Inspection: normal respiratory effort Auscultation: clear to auscultation bilaterally Cardio Jugular venous distension: no JVD Palpation: normal PMI Rate: regular rate Heart sounds: S1 normal heart sound present and S2 normal heart sound present GI Palpation (GI): Soft to palpation and No hepatosplenomegaly present Extrem General: Yes normal to inspection and Yes full ROM Assessment and Plan Assessment & Plan (1) Class 2 severe obesity with body mass index (BMI) of 35 to 39.9 with serious comorbidity: Code(s): E66.01 - Morbid (severe) obesity due to excess calories Plan: Patient was counseled again on the importance of diet and exercise. 15 minutes spent counseling the patient. (2) Essential hypertension: Code(s): I10 - Essential (primary) hypertension Plan: Blood pressure is in range. Continue current medications at same dosage. (3) Type 2 diabetes mellitus without complication: Code(s): E11.9 - Type 2 diabetes mellitus without complications Qualifiers: Diabetes mellitus long-term insulin use: without pin attacher use Qualified Code(s): E11.9 - Type 2 diabetes mellitus without complications Plan: A1c is in range. Will not change the dosage on his medications. Patient was advised to monitor his fasting blood sugar. Coding Level of Care Code Est Pt Level 4 (72851) Diagnoses Class 2 severe obesity with body mass index (BMI) of 35 to 39.9 with serious comorbidity E66.01 Essential hypertension I10 Type 2 diabetes mellitus without complication E11.9 Diabetes mellitus long-term insulin use: without pin attacher use Additional Codes PHQ-9 - 64941 - PHQ-9 Billing: Y ([id number])
== END 2023-05-22 08:15 | disposition home or self-care (01) ==
PROVIDERS: PCP Internal Medicine; Visit Provider Internal Medicine
DX: I10 Essential (primary) hypertension (principal); E66.01 Morbid (severe) obesity due to excess calories; E11.9 Type 2 diabetes mellitus without complications; Z68.43 Body mass index [BMI] 50.0-59.9, adult
CPT/HCPCS: 99214

== ENCOUNTER 2023-10-25 08:02 | Outpatient (REF) | payer OTHER, SELFPAY ==
[2023-10-25 09:15] LABS: Hematocrit 45.7 % (42.0-52.0); Hemoglobin 15.4 g/dl (14.0-18.0); Mean Corpuscular HGB Conc 33.7 g/dl (31.0-36.0); Mean Corpuscular Hemoglobin 33.3 pg (27.0-33.0); Mean Corpuscular Volume 98.9 fL (80.0-98.0); Mean Platelet Volume 8.9 fL (9.4-12.4); Platelet Count 243 X10*3/uL (160-400); Red Blood Count 4.62 X10*6/uL (4.60-5.80); Red Cell Distribution Width 12.2 % (11.0-16.0); White Blood Count 8.5 X10*3/uL (4.8-10.8)
[2023-10-25 09:22] LABS: Estimated Average Glucose 148 mg/dL; Hemoglobin A1c % 6.8 % (<6.0)
[2023-10-25 09:26] LABS: Appearance Urine Clear; Color Urine Yellow; Glucose Urine UA >=1000 mg/dL (Negative); Leukocyte Esterase Urine Negative (Negative); Nitrite Urine Negative (Negative); Specific Gravity - Urine >= 1.030 (1.005-1.025); UMIC TRIGGER UA YES; Urine Blood Negative (Negative); Urine Ketones 15 mg/dL (Negative); Urine Protein Negative (Neg-Trace)
[2023-10-25 09:32] LABS: Bacteria Urine None Seen (None Seen); Hyaline Casts Urine 0-2 /LPF (0-2); RBC Urine 0-2 /HPF (0-2); Squamous Epithelial Cell Urine 0-2 /HPF (0-2); WBC Urine 0-5 /HPF (0-5)
[2023-10-25 09:38] LABS: Creatinine Urine 79.18 mg/dL; Microalbum/Creatinine Ratio Ur 7.5 ug/mg cr (<30)
[2023-10-25 09:48] LABS: Alanine Aminotransferase 15 U/L (0-40); Albumin Level 4.2 g/dL (3.5-5.0); Alkaline Phosphatase 103 U/L (39-117); Anion Gap 15 (12-20); Aspartate Amino Transferase 19 U/L (5-37); Bilirubin Direct 0.5 mg/dL (0.0-0.5); Bilirubin Total 1.3 mg/dL (0.0-1.0); Blood Urea Nitrogen 17 mg/dL (9-16); Carbon Dioxide 25 mmol/L (22-29); Chloride 103 mmol/L (96-108); Cholesterol 132 mg/dL (<200); Estimated Glomerular Filt Rate > 60; Glucose Random 135 mg/dL (60-115); HDL Cholesterol 56 mg/dL (>40); LDL Cholesterol Calculated 58 mg/dL (<100); Potassium 4.2 mmol/L (3.3-5.1); Sodium 139 mmol/L (135-145); Total Protein 7.3 g/dL (6.5-8.0); Triglycerides 92 mg/dL (<150)
== END 2023-10-25 08:03 | disposition home or self-care (01) ==
LOC: HO.LAB 08:02
PROVIDERS: PCP Internal Medicine; Visit Provider Internal Medicine
DX: E66.01 Morbid (severe) obesity due to excess calories (principal); E11.9 Type 2 diabetes mellitus without complications
CPT/HCPCS: 36415; 80048; 80061; 80076; 81001; 82043; 82570; 83036; 84443; 85027

== ENCOUNTER 2023-11-06 07:53 | Outpatient (AMB) | payer OTHER, SELFPAY ==
[2023-11-06 08:16] VITALS: BP 130/76; PULSE 86; O2SAT 96; BMI 50.6
--- NOTE | 2023-11-06 08:16 | MHC.PC.OV ---
Vital Signs 11/06/23 08:16 Height 5 ft 4 in Weight 295 lb BMI 50.6 BP 130/76 Blood Pressure Location Lt brachial Position Sitting Pulse 86 Pulse Source Pulse Oximeter Pulse Oximetry (%) 96 Oxygen Delivery Method Room Air Intake Visit Reasons: 6M follow up Intake Note: Patient here for a 6 month follow up Hand Etcher Required: No Accompanied by: Self / Same As Patient Allergies No Known Allergies Allergy (Verified 11/06/23 08:40) Tobacco use date assessed: 11/06/23 Fall risk assessment: No Falls in past year Last assessed Fall Risk: 11/06/23 Dental Screening Dental Screen Date: 11/06/23 Did you have a dental visit in the last 12 months?: No Did you have a dental problem in the last 6 months where you did not have access to dental care?: No Was dental information given to patient?: Patient has dentist HPI 6M follow up HPI Details 68-year-old male presents to the office to discuss his chronic medical conditions. Since last office visit patient has been using a crutch to walk. His left knee has gotten worse and is scheduled for a knee replacement on December 30. This would be the 2nd replacement on the left knee. Patient is compliant with medications. He has not following any particular diet. Able to function and do all activities of daily living. [facility] Medical History Low serum testosterone level BPH (benign prostatic hyperplasia) Class 2 severe obesity with body mass index (BMI) of 35 to 39.9 with serious comorbidity Essential hypertension Hypercholesterolemia Type 2 diabetes mellitus without complication Surgical History History of knee replacement procedure of right knee History of total left knee replacement History of colonoscopy Family History Father Prostate cancer Mother No problems noted. Social History Housing: House Alcohol intake: current Alcohol intake frequency: a few times a week Patient Tobacco Use Status: Former Tobacco user Tobacco use type: Cigarette e-Cigarette/Vaping Use: Never Used Second Hand Smoke Exposure: No service: No Current occupational status: employed and retired Cognitive needs: Yes Hearing needs: No Vision needs: No Questionnaire PHQ-9 Over the last 2 weeks, how often have you been bothered by any of the following problems? 1. Little interest or pleasure in doing things: not at all 2. Feeling down, depressed, or hopeless: not at all 3. Trouble falling or staying asleep, or sleeping too much: not at all 4. Feeling tired or having little energy: not at all 5. Poor appetite or overeating: not at all 6. Feeling bad about yourself - or that you are a failure or have let yourself or your family down: not at all 7. Trouble concentrating on things, such as reading the newspaper or watching television: not at all 8. Moving or speaking so slowly that other people could have noticed. Or the opposite - being so fidgety or restless that you have been moving around a lot more than usual: not at all 9. Thoughts that you would be better off or of hurting yourself in some way: not at all Total score: 0 Source: Developed by Drs. Zain Mcmullen, Zita Zee, Conner Vickers and colleagues, with an educational nicky from [employer]. Thrive Questionnaire Date Thrive assessed: 11/06/23 I am a: Patient What is your living situation today?: I have a steady place to live Within the past 12 months, did the food you bought not last and you didn't have the money to get more?: Never true Within the past 12 months, did you worry whether your food would run out before you got money to buy more?: Never true Do you have trouble paying for medicines?: No Do you have trouble getting transportation to medical appointments?: No Do you have trouble paying your heating and electricity bill?: No Do you have trouble taking care of your child, family member or friend?: No Do you have trouble with day-to-day activities such as bathing, preparing meals, shopping, managing finances, etc.?: No Are you currently unemployed and looking for a job?: No Are you interested in more education?: No Please select the resources that you would like help with: None Currently or been in a relationship where the following occur: no concerns reported AUDIT C Alcohol Use Questionnaire (AUDIT-C) 1. How often do you have a drink containing alcohol?: 4 or more times a week 2. How many drinks containing alcohol do you have on a typical day when you are drinking?: 1 or 2 3. How often do you have six or more drinks on one occasion?: Never Total Score: 4 OUSMANE-7 AMB Questionnaire OUSMANE-7 Date OUSMANE - 7 assessed: 11/06/23 Feeling nervous, anxious, or on edge: 0 = Not at all Not being able to stop or control worryin = Not at all Worrying too much about different things: 0 = Not at all Trouble relaxin = Not at all Being so restless that it is hard to sit still: 0 = Not at all Becoming easily annoyed or irritable: 0 = Not at all Feeling afraid as if something awful might happen: 0 = Not at all Total OUSMANE-7 score (0-4 normal; 5-9 mild; 10-14 moderate; 15-21 severe): 0 Source: Developed by Drs. Zain Mcmullen, Zita Zee, Conner Vickers and colleagues, with an educational nicky from [employer]. Physical exam (Primary Care) Vital Signs: Last Vital Signs Pulse 86 11/06/23 08:16 BP 130/76 11/06/23 08:16 Pulse Ox 96 11/06/23 08:16 Oxygen Delivery Method Room Air 11/06/23 08:16 BMI result Body Mass Index 50.6 Tobacco/Smoking Status: Tobacco use Status Tobacco use date assessed 11/06/23 11/06/23 08:25 Patient Tobacco Use Status Former Tobacco user 11/06/23 08:18 Tobacco use type Cigarette 11/06/23 08:18 e-Cigarette/Vaping Use Never Used 11/06/23 08:18 PHQ-9: PHQ-9 Score PHQ-9: Total score 0 11/06/23 08:25 Thrive Assessment: Date of Thrive Assessment Date Thrive assessed 11/06/23 11/06/23 08:25 Currently or been in a relationship where the following occur: no concerns reported Const General: cooperative and healthy appearing Nutritional Appearance: well nourished Orientation/consciousness: patient oriented x3 Limitations: no limitations HENMT Head: Yes normal to inspection Eyes General: appearance normal, both eyes and all related structures Neck Neck: Yes normal visual inspection Chest Chest palpation & inspection: normal palpation of entire chest wall Resp Effort & Inspection: normal respiratory effort Neuro General: patient oriented x3 Assessment and Plan Assessment & Plan (1) Type 2 diabetes mellitus without complication: Code(s): E11.9 - Type 2 diabetes mellitus without complications Qualifiers: Diabetes mellitus long term acute care registered nurse insulin use: without long term acute care registered nurse use Qualified Code(s): E11.9 - Type 2 diabetes mellitus without complications Plan: Blood work reviewed with patient. A1c has risen to 6.8. Important to follow a strict her diet. Patient was instructed to avoid sugars and simple carbohydrates. Continue medications at same dosage. (2) Left knee pain: Code(s): M25.562 - Pain in left knee Plan: Patient is scheduled for a left knee replacement. He is getting a 2nd knee replacement. Explained the urgency for him to lose weight Coding Level of Care Code Est Pt Level 4 (99919) Diagnoses Type 2 diabetes mellitus without complication, without long-term current use of insulin E11.9 Diabetes mellitus long term acute care registered nurse insulin use: without chcf use Left knee pain M25.562
== END 2023-11-06 08:40 | disposition home or self-care (01) ==
PROVIDERS: PCP Internal Medicine; Visit Provider Internal Medicine
DX: E11.9 Type 2 diabetes mellitus without complications (principal); M25.562 Pain in left knee
CPT/HCPCS: 99214

== ENCOUNTER 2024-05-10 07:41 | Outpatient (REF) | payer OTHER, SELFPAY ==
[2024-05-10 08:32] LABS: Hematocrit 43.2 % (42.0-52.0); Hemoglobin 14.6 g/dl (14.0-18.0); Mean Corpuscular HGB Conc 33.8 g/dl (31.0-36.0); Mean Corpuscular Hemoglobin 31.9 pg (27.0-33.0); Mean Corpuscular Volume 94.5 fL (80.0-98.0); Platelet Count 226 X10*3/uL (160-400); Red Blood Count 4.57 X10*6/uL (4.60-5.80); Red Cell Distribution Width 13.2 % (11.0-16.0); White Blood Count 7.5 X10*3/uL (4.8-10.8)
[2024-05-10 08:40] LABS: Estimated Average Glucose 163 mg/dL; Hemoglobin A1c % 7.3 % (<6.0)
[2024-05-10 09:14] LABS: Alanine Aminotransferase 18 U/L (0-40); Albumin Level 4.2 g/dL (3.5-5.0); Alkaline Phosphatase 93 U/L (39-117); Anion Gap 14 (12-20); Aspartate Amino Transferase 20 U/L (5-37); Bilirubin Direct 0.3 mg/dL (0.0-0.5); Bilirubin Total 1.1 mg/dL (0.0-1.0); Blood Urea Nitrogen 21 mg/dL (9-16); Calcium 8.8 mg/dL (8.4-10.2); Carbon Dioxide 24 mmol/L (22-29); Chloride 104 mmol/L (96-108); Cholesterol 136 mg/dL (<200); Estimated Glomerular Filt Rate > 60; Glucose Random 165 mg/dL (60-115); HDL Cholesterol 48 mg/dL (>40); LDL Cholesterol Calculated 61 mg/dL (<100); Potassium 4.2 mmol/L (3.3-5.1); Sodium 138 mmol/L (135-145); Total Protein 7.3 g/dL (6.5-8.0); Triglycerides 138 mg/dL (<150)
[2024-05-10 09:16] LABS: Appearance Urine Clear; Color Urine Yellow; Glucose Urine UA >=1000 mg/dL (Negative); Leukocyte Esterase Urine Negative (Negative); Nitrite Urine Negative (Negative); PH 5.5 (5.0-9.0); Specific Gravity - Urine >= 1.030 (1.005-1.025); UMIC TRIGGER UA YES; Urine Blood Negative (Negative); Urine Ketones Negative (Negative); Urine Protein Negative (Neg-Trace)
[2024-05-10 09:30] LABS: Thyroid Stimulating Hormone 0.87 uIU/mL (0.32-4.0)
[2024-05-10 09:36] LABS: Bacteria Urine None Seen (None Seen); Hyaline Casts Urine 0-2 /LPF (0-2); RBC Urine 0-2 /HPF (0-2); Squamous Epithelial Cell Urine 0-2 /HPF (0-2); WBC Urine 0-5 /HPF (0-5)
[2024-05-10 09:37] LABS: Creatinine Urine 64.26 mg/dL; Microalbumin Urine < 5.0 mg/L
== END 2024-05-10 07:42 | disposition home or self-care (01) ==
LOC: HO.LAB 07:41
PROVIDERS: PCP Internal Medicine; Visit Provider Internal Medicine
DX: E66.01 Morbid (severe) obesity due to excess calories (principal); I10 Essential (primary) hypertension; E11.9 Type 2 diabetes mellitus without complications
CPT/HCPCS: 36415; 80048; 80061; 80076; 81001; 81003; 82043; 82570; 83036; 84443; 85027

== ENCOUNTER 2024-06-01 08:36 | Outpatient (AMB) | payer OTHER, SELFPAY ==
[2024-06-01 08:41] VITALS: BP 132/68; PULSE 83; O2SAT 94; BMI 52.0
--- NOTE | 2024-06-01 08:41 | MHC.PC.OV ---
Vital Signs 06/01/24 08:41 Height 5 ft 4 in Weight 303 lb 0.8 oz BMI 52.0 BP 132/68 Blood Pressure Location Lt brachial Position Sitting Pulse 83 Pulse Source Pulse Oximeter Pulse Oximetry (%) 94 Oxygen Delivery Method Room Air Intake Visit Reasons: DM Signal Intelligence/Electronic Warfare Required: No Allergies No Known Allergies Allergy (Verified 06/01/24 09:25) Medication List - Last Reconciled 06/01/24 by Trevon Jerez MD aspirin 81 mg PO DAILY atorvastatin 10 mg PO BEDTIME blood sugar diagnostic (FreeStyle Lite Strips) Once a day dapaglifloz propaned-metformin 10-1,000 mg ER (Xigduo XR) 1 tab PO DAILY lisinopril 2.5 mg PO DAILY omeprazole 20 mg PO DAILY tamsulosin 0.4 mg PO DAILY Tobacco use date assessed: 11/06/23 Fall risk assessment: No Falls in past year Last assessed Fall Risk: 06/01/24 Dental Screening Dental Screen Date: 11/06/23 HPI DM HPI Details 69-year-old male presents to the office to discuss his chronic medical conditions. Since last visit patient progressively is gaining weight. He had a 2nd knee surgery done. Not following a regular diet or exercise. Patient sees the clinical data coordinator regularly. Not checking his sugars at home. Able to function and do activities of daily living. [facility] Medical History Low serum testosterone level BPH (benign prostatic hyperplasia) Class 2 severe obesity with body mass index (BMI) of 35 to 39.9 with serious comorbidity Essential hypertension Hypercholesterolemia Type 2 diabetes mellitus without complication Surgical History History of knee replacement procedure of right knee History of total left knee replacement History of colonoscopy Family History Father Prostate cancer Mother No problems noted. Social History Housing: House Alcohol intake: current Alcohol intake frequency: a few times a week Patient Tobacco Use Status: Former Tobacco user Tobacco use type: Cigarette e-Cigarette/Vaping Use: Never Used Second Hand Smoke Exposure: No service: No Current occupational status: employed and retired Cognitive needs: Yes Hearing needs: No Vision needs: No Questionnaire Thrive Questionnaire Date Thrive assessed: 11/06/23 AUDIT C Alcohol Use Questionnaire (AUDIT-C) 1. How often do you have a drink containing alcohol?: 4 or more times a week 2. How many drinks containing alcohol do you have on a typical day when you are drinking?: 1 or 2 3. How often do you have six or more drinks on one occasion?: Never Total Score: 4 OUSMANE-7 AMB Questionnaire OUSMANE-7 Date OUSMANE - 7 assessed: 11/06/23 Source: Developed by Drs. Zain Mcmullen, Zita Zee, Conner Vickers and colleagues, with an educational nicky from [employer]. Physical exam (Primary Care) Vital Signs: Last Vital Signs Pulse 83 06/01/24 08:41 BP 132/68 06/01/24 08:41 Pulse Ox 94 06/01/24 08:41 Oxygen Delivery Method Room Air 06/01/24 08:41 Care Plan Goal for BP management: Blood pressure is in range. BMI result Body Mass Index 52.0 BMI Assessment/Plan discussion: High (1 lb per week weight loss suggested.) BMI High, discussed plan: lifestyle, weight reduction and dietary Tobacco/Smoking Status: Tobacco use Status Tobacco use date assessed 11/06/23 06/01/24 08:41 Patient Tobacco Use Status Former Tobacco user 06/01/24 08:41 Tobacco use type Cigarette 06/01/24 08:41 e-Cigarette/Vaping Use Never Used 06/01/24 08:41 Thrive Assessment: Date of Thrive Assessment Date Thrive assessed 11/06/23 06/01/24 08:41 Const General: cooperative and healthy appearing Nutritional Appearance: well nourished Orientation/consciousness: patient oriented x3 Limitations: no limitations HENMT Head: Yes normal to inspection Eyes General: appearance normal, both eyes and all related structures Neck Neck: Yes normal visual inspection Chest Chest palpation & inspection: normal palpation of entire chest wall Resp Effort & Inspection: normal respiratory effort Neuro General: patient oriented x3 Assessment and Plan Assessment & Plan (1) Class 2 severe obesity with body mass index (BMI) of 35 to 39.9 with serious comorbidity: Code(s): E66.01 - Morbid (severe) obesity due to excess calories Plan: His increasing weight is of major concern. Patient recently had a 2nd left knee replacement. Patient was encouraged to lose weight for better control on his diabetes and prevention of osteoarthritis. (2) Type 2 diabetes mellitus without complication: Code(s): E11.9 - Type 2 diabetes mellitus without complications Qualifiers: Diabetes mellitus care home insulin use: without termite technician use Qualified Code(s): E11.9 - Type 2 diabetes mellitus without complications Plan: A1c is worsening from 6.8-7.3. Januvia has been added to the regimen. (3) Essential hypertension: Code(s): I10 - Essential (primary) hypertension Plan: Blood pressure is in range. (4) Hypercholesterolemia: Code(s): E78.00 - Pure hypercholesterolemia, unspecified Plan: LDL is in range. Continue statins at same dosage. Medications: New sitagliptin phosphate (Januvia) 25 mg PO DAILY 90 tabs 0RF Coding Level of Care Code Est Pt Level 4 (12134) Complex EM visit Add On G2211 Diagnoses Class 2 severe obesity with body mass index (BMI) of 35 to 39.9 with serious comorbidity E66.01 Type 2 diabetes mellitus without complication, without long-term current use of insulin E11.9 Diabetes mellitus care home insulin use: without termite technician use Essential hypertension I10 Hypercholesterolemia E78.00
== END 2024-06-01 09:21 | disposition home or self-care (01) ==
PROVIDERS: PCP Internal Medicine; Visit Provider Internal Medicine
DX: E11.9 Type 2 diabetes mellitus without complications (principal); I10 Essential (primary) hypertension; Z68.43 Body mass index [BMI] 50.0-59.9, adult; E66.01 Morbid (severe) obesity due to excess calories
CPT/HCPCS: 99214

== ENCOUNTER 2024-11-29 08:07 | Outpatient (REF) | payer OTHER, SELFPAY ==
[2024-11-29 08:27] LABS: MANUAL DIFF FLAG NO
[2024-11-29 08:49] LABS: Basophils Percent Auto 0.2 % (0-2); Eosinophils Absolute Auto 0.1 X10*3/uL (0.0-0.4); Hemoglobin 14.7 g/dl (14.0-18.0); Imm Gran Abs Auto 0.01 X10*3/uL (0.00-0.03); Imm Gran Pct Auto 0.1 % (0.0-0.4); Lymphocytes Absolute Auto 1.9 X10*3/uL (1.2-4.9); Mean Corpuscular HGB Conc 34.2 g/dl (31.0-36.0); Mean Corpuscular Hemoglobin 32.4 pg (27.0-33.0); Mean Corpuscular Volume 94.7 fL (80.0-98.0); Mean Platelet Volume 8.5 fL (9.4-12.4); Monocytes Absolute Auto 0.6 X10*3/uL (0.1-1.2); Monocytes Percent Auto 6.9 % (2-11); Neutrophils Absolute Auto 5.5 x10*3/uL (2.0-8.3); Neutrophils Percent Auto 67.8 % (45-73); Platelet Count 254 X10*3/uL (160-400); Red Blood Count 4.54 X10*6/uL (4.60-5.80); Red Cell Distribution Width 12.1 % (11.0-16.0); White Blood Count 8.1 X10*3/uL (4.8-10.8)
[2024-11-29 08:57] LABS: Estimated Average Glucose 163 mg/dL; Hemoglobin A1C 217.3896 umol/L; Hemoglobin A1c % 7.3 % (<6.0); Total Hemoglobin (HGBA1C) 3850.8614 umol/L
[2024-11-29 09:29] LABS: Erythrocyte Sedimentation Rate 12 MM/HR (0-15)
[2024-11-29 09:45] LABS: Creatinine Urine 50.37 mg/dL; Microalbumin Urine < 5.0 mg/L
[2024-11-29 09:58] LABS: PSA,Total (Free>4and<10) 1.01 ng/mL (0.00-4.00)
[2024-11-29 10:05] LABS: Alanine Aminotransferase 15 U/L (0-40); Albumin Level 4.2 g/dL (3.5-5.0); Alkaline Phosphatase 116 U/L (39-117); Anion Gap 12 (12-20); Aspartate Amino Transferase 19 U/L (5-37); Bilirubin Direct 0.3 mg/dL (0.0-0.5); Bilirubin Total 0.8 mg/dL (0.0-1.0); Blood Urea Nitrogen 17 mg/dL (9-16); Calcium 9.3 mg/dL (8.4-10.2); Carbon Dioxide 24 mmol/L (22-29); Chloride 108 mmol/L (96-108); Cholesterol 127 mg/dL (<200); Estimated Glomerular Filt Rate > 60; Glucose Fasting 169 mg/dL (60-99); HDL Cholesterol 49 mg/dL (>40); LDL Cholesterol Calculated 60 mg/dL (<100); Potassium 4.6 mmol/L (3.3-5.1); Sodium 139 mmol/L (135-145); Total Protein 7.6 g/dL (6.5-8.0); Triglycerides 90 mg/dL (<150)
[2024-11-29 10:06] LABS: TSH reflex Free T4 0.67 uIU/mL (0.32-4.0); Vitamin D 25-OH Total 20.6 ng/mL (>30)
[2024-11-29 10:16] LABS: Folate 11.8 ng/mL (> or = 4.0); Vitamin B12 432 pg/mL (200-900)
--- OUTSIDE RECORDS SUMMARY | 2024-11-29 12:34 | XMS_ITS | Patient Health Record ---
Author Organization [facility] Address [address] [place] [id number] Care Team Providers Care Customs House Broker Name Role Phone FARNAZ COLMENARES Primary Care Provider Eliezer Cruz Jr Unavailable ALLERGIES No Known Allergies REASON FOR REFERRAL No Information MEDICATIONS Medication SIG (Take, Route, Frequency, Duration) Notes Start Date End Date Status Omeprazole Magnesium 20mg Active MiraLax (colon prep) 17 GM/SCOOP mixed with Gatorade or Crystal Light Orally begin at 5:00 p.m. the day before the procedure for 1 day 02/25/2022 Active Atorvastatin Calcium 10 MG Oral for 90 Active Tamsulosin HCl 0.4 MG Oral for 90 Active Lisinopril 2.5 MG Oral for 90 Active Xigduo XR 10-1000 MG Oral for 90 Active Omeprazole 20 MG Oral for 90 A ctive metFORMIN HCl 1000mg Active Testim 1% Active IMMUNIZATIONS Vaccine Route Administration Date Status Comme nts Influenza Unknown 02/25/2022 Refused SOCIAL HISTORY Sex Assigned At : Social History Observation Description Sex Assigned At Unknown PROBLEMS Problem Type ICD Code Onset Dates Problem Status W/U Status Risk SNOMED Code Notes Problem Colon cancer screening (Z12.11) Active confirmed 954732380 Problem Encounter for other preprocedural examination (Z01.818) Active confirmed 381780976 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 drugs (Z79.84) Active confirmed [id number] PLAN OF TREATMENT Future Test Test Name Order Date COLONOSCOPY 02/25/2022 Insurance Providers Payer Name Payer Address Payer Phone Subscriber Number Group Number Insured Name Patient Relationship to Insured Coverage Start Date Coverage End Date [facility] [address] [place], [place] [phone] [id number] [employer] Self - patient is the insured MEDICAL (GENERAL) HISTORY Medical History History ICD Code esophageal reflux diabetes mellitus low serum testosterone level BPH Elevated cholesterol KRISTYN, not using CPAP Surgical History Surgery Date(Month/Year) knee replacement, left x 2
== END 2024-11-29 08:08 | disposition home or self-care (01) ==
LOC: HO.LAB 08:07
PROVIDERS: PCP Internal Medicine; Visit Provider Physician Assistant Medical
DX: E66.01 Morbid (severe) obesity due to excess calories (principal); I10 Essential (primary) hypertension; E78.00 Pure hypercholesterolemia, unspecified; E11.9 Type 2 diabetes mellitus without complications; Z12.5 Encounter for screening for malignant neoplasm of prostate
CPT/HCPCS: 36415; 80053; 80061; 80076; 82043; 82248; 82306; 82570; 82607; 82746; 83036; 83735; 84153; 84443; 85025; 85652

== ENCOUNTER 2024-12-09 08:02 | Outpatient (AMB) | payer OTHER, SELFPAY ==
--- NOTE | 2024-12-09 08:03 | A.OFFPC_ITS ---
Intake Visit Reasons: 6mth f/u Intake Note: Patient is here to follow up on HTN, DM. Patients Transporter Required: No White Washer Piler: Not Required per policy Accompanied by: Self / Same As Patient Allergies No Known Allergies Allergy (Verified 12/09/24 08:15) Medication List - Last Reconciled 12/09/24 by Trevon Jerez MD atorvastatin 10 mg PO BEDTIME blood sugar diagnostic (FreeStyle Lite Strips) Once a day cholecalciferol (vitamin D3) 1,250 mcg PO QWEEK 3 months dapaglifloz propaned-metformin 10-1,000 mg ER (Xigduo XR) 1 tab PO DAILY lisinopril 2.5 mg PO DAILY omeprazole 20 mg PO DAILY tamsulosin 0.4 mg PO DAILY Tobacco use date assessed: 11/06/23 Fall risk assessment: 1 Fall in past year Last assessed Fall Risk: 12/09/24 Dental Screening Dental Screen Date: 12/09/24 Did you have a dental visit in the last 12 months?: Yes Did you have a dental problem in the last 6 months where you did not have access to dental care?: No Was dental information given to patient?: Patient has dentist HPI 6mth f/u HPI Details 69-year-old male wishes to discuss his [facility] health via tele health. Patient continues to be compliant with medications. Since last office visit, he did not start the Januvia prescription. He felt he could control his sugars better on the medications he was taking. Not checking his blood sugars frequently. He has not lost much weight since the last office visit. Able to function and do activities of daily living. [facility] Medical History Low serum testosterone level BPH (benign prostatic hyperplasia) Class 2 severe obesity with body mass index (BMI) of 35 to 39.9 with serious comorbidity Essential hypertension Hypercholesterolemia Type 2 diabetes mellitus without complication Surgical History History of knee replacement procedure of right knee History of total left knee replacement History of colonoscopy Family History Father Prostate cancer Mother No problems noted. Social History Housing: House Alcohol intake: current Alcohol intake frequency: a few times a week Patient Tobacco Use Status: Former Tobacco user Tobacco use type: Cigarette e-Cigarette/Vaping Use: Never Used Second Hand Smoke Exposure: No service: No Current occupational status: employed and retired Cognitive needs: Yes Hearing needs: No Vision needs: No Questionnaire PHQ-9 Over the last 2 weeks, how often have you been bothered by any of the following problems? 1. Little interest or pleasure in doing things: not at all 2. Feeling down, depressed, or hopeless: not at all 3. Trouble falling or staying asleep, or sleeping too much: not at all 4. Feeling tired or having little energy: not at all 5. Poor appetite or overeating: not at all 6. Feeling bad about yourself - or that you are a failure or have let yourself or your family down: not at all 7. Trouble concentrating on things, such as reading the newspaper or watching television: not at all 8. Moving or speaking so slowly that other people could have noticed. Or the opposite - being so fidgety or restless that you have been moving around a lot more than usual: not at all 9. Thoughts that you would be better off or of hurting yourself in some way: not at all Total score: 0 Depression Screening Interpretation: Negative Depression Screening Done: Yes Source: Developed by Drs. Zain Mcmullen, Zita Zee, Conner Vickers and colleagues, with an educational nicky from [employer]. Thrive Questionnaire Date Thrive assessed: 12/09/24 I am a: Patient What is your living situation today?: I have a steady place to live Within the past 12 months, did the food you bought not last and you didn't have the money to get more?: Never true Within the past 12 months, did you worry whether your food would run out before you got money to buy more?: Never true Do you have trouble paying for medicines?: No Do you have trouble getting transportation to medical appointments?: No Do you have trouble paying your heating and electricity bill?: No Do you have trouble taking care of your child, family member or friend?: No Do you have trouble with day-to-day activities such as bathing, preparing meals, shopping, managing finances, etc.?: No Are you currently unemployed and looking for a job?: No Are you interested in more education?: No Please select the resources that you would like help with: None Currently or been in a relationship where the following occur: No concerns reported THRIVE Score: 0 AUDIT C Alcohol Use Questionnaire (AUDIT-C) 1. How often do you have a drink containing alcohol?: 4 or more times a week 2. How many drinks containing alcohol do you have on a typical day when you are drinking?: 1 or 2 Total Score: 4 OUSMANE-7 AMB Questionnaire OUSMANE-7 Date OUSMANE - 7 assessed: 12/09/24 Feeling nervous, anxious, or on edge: 0 = Not at all Not being able to stop or control worryin = Not at all Worrying too much about different things: 0 = Not at all Trouble relaxin = Not at all Being so restless that it is hard to sit still: 0 = Not at all Becoming easily annoyed or irritable: 0 = Not at all Feeling afraid as if something awful might happen: 0 = Not at all Total OUSMANE-7 score (0-4 normal; 5-9 mild; 10-14 moderate; 15-21 severe): 0 Source: Developed by Drs. Zain Mcmullen, Zita Zee, Conner Vickers and colleagues, with an educational nicky from [employer]. Physical exam (Primary Care) Tobacco/Smoking Status: Tobacco use Status Tobacco use date assessed 11/06/23 12/09/24 08:06 Patient Tobacco Use Status Former Tobacco user 12/09/24 08:06 Tobacco use type Cigarette 12/09/24 08:06 e-Cigarette/Vaping Use Never Used 12/09/24 08:06 PHQ-9: PHQ-9 Score PHQ-9: Total score 0 12/09/24 08:06 Depression Screening Interpretation: Negative Thrive Assessment: Date of Thrive Assessment Date Thrive assessed 12/09/24 12/09/24 08:06 Currently or been in a relationship where the following occur: No concerns reported Const General: cooperative and healthy appearing Nutritional Appearance: well nourished Orientation/consciousness: patient oriented x3 Limitations: no limitations HENMT Head: Yes normal to inspection Eyes General: appearance normal, both eyes and all related structures Neck Neck: Yes normal visual inspection Chest Chest palpation & inspection: normal palpation of entire chest wall Resp Effort & Inspection: normal respiratory effort Neuro General: patient oriented x3 Telehealth Telehealth Telehealth Platform: [employer] Location of provider rendering services: practice address Location of patient: address on file Patient Identification confirmed using: Name, : Yes Telehealth method: voice only Patient verbally consented to treatment: Yes Patient verbally consented to billing insurance company: Yes Patient informed of any privacy concerns related to visit: Yes Minutes spent on Phone/Video with Pt.: 15 Coding Level of Care Code Tele New Pt Level 4 (83066) Complex EM visit Add On G2211 Diagnoses Type 2 diabetes mellitus without complication, without long-term current use of insulin E11.9 Diabetes mellitus supervisor intermediates insulin use: without detention use Class 2 severe obesity with body mass index (BMI) of 35 to 39.9 with serious comorbidity E66.01 Essential hypertension I10 Hypercholesterolemia E78.00 Assessment & Plan Assessment & Plan (1) Type 2 diabetes mellitus without complication: Code(s): E11.9 - Type 2 diabetes mellitus without complications Category: Medical Qualifiers: Diabetes mellitus detention insulin use: without detention use Qualified Code(s): E11.9 - Type 2 diabetes mellitus without complications Plan: A1c is at 7.3. Patient is still declining to add any extra medications. Has promised to focus on his exercise. (2) Class 2 severe obesity with body mass index (BMI) of 35 to 39.9 with serious comorbidity: Code(s): E66.01 - Morbid (severe) obesity due to excess calories Category: Medical Plan: Counseling on diet and exercise done. (3) Essential hypertension: Code(s): I10 - Essential (primary) hypertension Category: Medical Plan: Blood work ordered. Will call with the results of the test. (4) Hypercholesterolemia: Code(s): E78.00 - Pure hypercholesterolemia, unspecified Category: Medical Plan: Blood work reviewed. Medications: Discontinued aspirin Discontinued Reason: Doctor's Order 81 mg PO DAILY 90 tabs 1RF sitagliptin phosphate (Januvia) Discontinued Reason: Doctor's Order 25 mg PO DAILY 90 tabs 0RF
== END 2024-12-09 10:03 | disposition home or self-care (01) ==
LOC: HO.HMCH 08:02
PROVIDERS: PCP Internal Medicine; Visit Provider Internal Medicine
DX: E11.9 Type 2 diabetes mellitus without complications (principal); E66.01 Morbid (severe) obesity due to excess calories; I10 Essential (primary) hypertension; E78.00 Pure hypercholesterolemia, unspecified

== ENCOUNTER 2025-06-13 07:32 | Outpatient (REF) | payer MEDICARE, SELFPAY ==
--- OUTSIDE RECORDS SUMMARY | 2025-06-13 07:35 | XMS_ITS | Encounter Summary ---
Author Organization [facility] Address [address] [place] [address] Phone Care Team Providers Care Air Crew Supervisor Name Role Phone Trevon Jerez MD Primary Care Provid er Encounter Details Date Type Department Care Team (Late st Contact Info) Description 09/18/2022 Procedure Pass [facility], Ct Scan - [facility] [address] [place] [address] Social History Tobacco Use Types Packs/Day Years Used Date Smoking Tobacco: Former Smokeless Tobacco: Never Sex and Gender Information Value Date Recorded Sex Assigned at Not on file Legal Sex Male 11:26 AM EST Gender Identity Not on file Sexual Orientation Not on file documented as of this encounter Plan of Treatment Not on file documented as of this encounter Visit Diagnoses Not on filedocumented in this encounter Care Teams Air Crew Supervisor Relationship Specialty Start Date End Date Trevon Jerez MD [address] [place] [address] [address] [place] [address] PCP - General Internal Medicine 09/14/20 documented as of this encounter Additional Source Comments The information contained in this document represents components of the legal health record. It is not the complete legal health record.[facility]
--- OUTSIDE RECORDS SUMMARY | 2025-06-13 07:36 | XMS_ITS | Encounter Summary ---
Author Organization [facility] Address [address] [place] [address] Care Team Providers Care Inspector Technician Name Role Phone Trevon Jerez MD Primary Care Provider [phone] Encounter Details Date Type Department Care Team (Late st Contact Info) Description 05/24/2025 Lab Requisition [facility] - Main Lab [address] [place] [address] Sy Oliveira MD [address] [facility] [address] [place], [place] [id number] Urinary tract infection, site not specified; Benign prostatic hyperplasia with lower urinary tract symptoms Social History Tobacco Use Types Packs/Day Years Used Date Smoking Tobacco: Never Assessed Sex and Gender Information Value Date Recorded Sex Assigned at Not on file Legal Sex Male 6:02 PM EDT Gender Identity Not on file Sexual Orientation Not on file documented as of this encounter Plan of Treatment Not on file documented as of this encounter Procedures Procedure Name Priority Date/Time Associated Diagnosis Comments CULTURE URINE Routine 05/24/2025 3:45 PM EDT Urinary tract infection, site not specified Benign prostatic hyperplasia with lower urinary tract symptoms documented in this encounter Results * (ABNORMAL) Culture urine (05/24/2025 3:45 PM EDT) Culture, Urine >=100,000 CFU/mL Escherichia coli(A) MOODY 05/26/2025 10:51 AM EDT [facility] ([facility] Urine Urine specimen obtained by clean catch procedure / Unknown Non-blood Collection / Unknown 05/24/2025 3:45 PM EDT 05/24/2025 6:07 PM EDT Narrative Organism Antibiotic Method Susceptibility Escherichia coli Amoxicillin/Clavulanate MOODY <=2 ug/ml: Susceptible Escherichia coli Ampicillin/Sulbactam MOODY <=2 ug/ml: Susceptible Escherichia coli Piperacillin/Tazobactam MOODY <=4 ug/ml: Susceptible Escherichia coli Cefazolin (Urine) MOODY <=1 ug/ml: Susceptible Escherichia coli Cefoxitin MOODY <=4 ug/ml: Susceptible Escherichia coli Ceftazidime MOODY <=0.5 ug/ml: Susceptible Escherichia coli Ceftriaxone MOODY <=0.25 ug/ml: Susceptible Escherichia coli Cefepime MOODY <=0.12 ug/ml: Susceptible Escherichia coli Meropenem MOODY <=0.25 ug/ml: Susceptible Escherichia coli Amikacin MOODY 2 ug/ml: Susceptible Escherichia coli Gentamicin MOODY <=1 ug/ml: Susceptible Escherichia coli Ciprofloxacin MOODY <=0.06 ug/ml: Susceptible Escherichia coli Levofloxacin MOODY <=0.12 ug/ml: Susceptible Escherichia coli Nitrofurantoin MOODY <=16 ug/ml: Susceptible Escherichia coli Trimethoprim/Sulfamethoxazole MOODY <=20 ug/ml: Susceptible us Sy Oliveira MD LAB MICROBIOLOGY - GENERAL ORDERABLES Final Result [facility] ([facility] [address] [place] [address], documented in this encounter Visit Diagnoses Diagnosis Urinary tract infection, site not specified Benign prostatic hyperplasia with lower urinary tract symptoms documented in this encounter Care Teams Inspector Technician Relationship Specialty Start Date End Date Trevon Jerez MD [address] [place] [address] PCP - General Internal Medicine 05/24/25 documented as of this encounter
--- OUTSIDE RECORDS SUMMARY | 2025-06-13 07:36 | XMS_ITS | Patient Health Record ---
Author Organization [facility] Address [address] [place] [address] Care Team Providers Care Cst Name Role Phone FARNAZ COLMENARES Primary Care Provider Eliezer Cruz Jr Unavailable Allergies No Known Allergies Reason For Referral No Information Medications Medication SIG (Take, Route, Frequency, Duration) Notes [...] metFORMIN HCl 1000mg Active Testim 1% Active Immunizations Vaccine Route Administration Date Status Comme nts Influenza Unknown 02/25/2022 Refused Problems Problem Type SNOMED Code ICD Code Onset Dates Problem Status W/U Status Risk Notes Problem [id number] Colon cancer screening (Z12.11) Active confirmed Problem [id number] Encounter for other preprocedural examination (Z01.818) Active confirmed Problem 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.84) Active confirmed Plan Of Treatment Future Test Test Name Order Date COLONOSCOPY 02/25/2022 Insurance Providers Payer Name Payer Address Payer Phone Subscriber Number Group Number Insured Name Patient Relationship to Insured Coverage Start Date Coverage End Date [facility] [address] [place] [phone] [id number] [employer] Self - patient is the insured Medical (General) History Medical History History ICD Code esophageal reflux diabetes mellitus low serum testosterone level BPH Elevated cholesterol KRISTYN, not using CPAP Surgical History Surgery Date(Month/Year) knee replacement, left x 2
[2025-06-13 08:11] LABS: Hematocrit 39.7 % (42.0-52.0); Hemoglobin 13.3 g/dl (14.0-18.0); Mean Corpuscular HGB Conc 33.5 g/dl (31.0-36.0); Mean Corpuscular Hemoglobin 31.2 pg (27.0-33.0); Mean Corpuscular Volume 93.2 fL (80.0-98.0); NRBC Abs Auto 0.000 X10*3/uL (0.0-0.012); NRBC Pct Auto 0.0 /100WBC (0.0-0.2); Platelet Count 280 X10*3/uL (160-400); Red Blood Count 4.26 X10*6/uL (4.60-5.80); White Blood Count 8.9 X10*3/uL (4.8-10.8)
[2025-06-13 09:02] LABS: Alanine Aminotransferase 9 U/L (0-40); Albumin Level 4.3 g/dL (3.5-5.0); Alkaline Phosphatase 106 U/L (39-117); Anion Gap 15 (12-20); Aspartate Amino Transferase 18 U/L (5-37); Blood Urea Nitrogen 19 mg/dL (9-16); Calcium 9.5 mg/dL (8.4-10.2); Carbon Dioxide 25 mmol/L (22-29); Chloride 104 mmol/L (96-108); Cholesterol 117 mg/dL (<200); Estimated Glomerular Filt Rate > 60; HDL Cholesterol 42 mg/dL (>40); Potassium 4.6 mmol/L (3.3-5.1); Sodium 139 mmol/L (135-145); Total Protein 7.5 g/dL (6.5-8.0); Triglycerides 101 mg/dL (<150)
[2025-06-13 09:18] LABS: Thyroid Stimulating Hormone 0.58 uIU/mL (0.32-4.0)
== END 2025-06-13 07:33 | disposition home or self-care (01) ==
LOC: HO.LAB 07:32
PROVIDERS: PCP Internal Medicine; Visit Provider Internal Medicine
DX: I10 Essential (primary) hypertension (principal); E78.00 Pure hypercholesterolemia, unspecified
CPT/HCPCS: 36415; 80048; 80061; 80076; 84443; 85027

== ENCOUNTER 2025-06-29 09:00 | Outpatient (AMB) | payer BC, SELFPAY ==
--- NOTE | 2025-06-29 09:05 | A.OFFPC_ITS ---
Vital Signs 06/29/25 09:07 Height 5 ft 4 in Weight 282 lb 8 oz BMI 48.5 BP 132/64 Blood Pressure Location Lt brachial Position Sitting Pulse 79 Pulse Source Pulse Oximeter Temp 97.1 F Temp Source Temporal Artery Scan Pulse Oximetry (%) 97 Oxygen Delivery Method Room Air Intake Visit Reasons: 6 mth f/u Intake Note: Patient is here to follow up on DM, HTN. Scheduling Specialist Required: No Pulp Cooker: Present Accompanied by: Spouse Allergies No Known Allergies Allergy (Verified 06/29/25 09:06) Tobacco use date assessed: 06/29/25 Fall risk assessment: No Falls in past year Last assessed Fall Risk: 06/29/25 Dental Screening Dental Screen Date: 12/09/24 [facility] Medical History (Updated 06/29/25 @ 09:48 by Trevon Jerez MD) Low back pain Low serum testosterone level BPH (benign prostatic hyperplasia) Class 2 severe obesity with body mass index (BMI) of 35 to 39.9 with serious comorbidity Essential hypertension Hypercholesterolemia Type 2 diabetes mellitus without complication Surgical History History of knee replacement procedure of right knee History of total left knee replacement History of colonoscopy (~04/02/22) Family History Father Prostate cancer Mother No problems noted. Social History Housing: House Alcohol intake: current Alcohol intake frequency: a few times a week Patient Tobacco Use Status: Former Tobacco user Tobacco use type: Cigarette e-Cigarette/Vaping Use: Never Used Second Hand Smoke Exposure: Yes service: No Current occupational status: employed and retired Cognitive needs: Yes Hearing needs: No Vision needs: No Questionnaire PHQ-9 Over the last 2 weeks, how often have you been bothered by any of the following problems? 1. Little interest or pleasure in doing things: not at all 2. Feeling down, depressed, or hopeless: not at all 3. Trouble falling or staying asleep, or sleeping too much: more than half the days 4. Feeling tired or having little energy: more than half the days 5. Poor appetite or overeating: not at all 6. Feeling bad about yourself - or that you are a failure or have let yourself or your family down: not at all 7. Trouble concentrating on things, such as reading the newspaper or watching television: not at all 8. Moving or speaking so slowly that other people could have noticed. Or the opposite - being so fidgety or restless that you have been moving around a lot more than usual: not at all 9. Thoughts that you would be better off or of hurting yourself in some way: not at all Total score: 4 Depression Screening Interpretation: Positive Depression Screening Done: Yes Source: Developed by Drs. Zain Mcmullen, Zita Zee, Conner Vickers and colleagues, with an educational nicky from [employer]. Thrive Questionnaire Date Thrive assessed: 12/09/24 I am a: Patient What is your living situation today?: I have a steady place to live Within the past 12 months, did the food you bought not last and you didn't have the money to get more?: Never true Within the past 12 months, did you worry whether your food would run out before you got money to buy more?: Never true Do you have trouble paying for medicines?: I choose not to answer this question Do you have trouble getting transportation to medical appointments?: No Do you have trouble paying your heating and electricity bill?: No Do you have trouble taking care of your child, family member or friend?: No Do you have trouble with day-to-day activities such as bathing, preparing meals, shopping, managing finances, etc.?: No Are you currently unemployed and looking for a job?: No Are you interested in more education?: No Please select the resources that you would like help with: None Currently or been in a relationship where the following occur: No concerns reported THRIVE Score: 0 AUDIT C Alcohol Use Questionnaire (AUDIT-C) 1. How often do you have a drink containing alcohol?: 4 or more times a week 2. How many drinks containing alcohol do you have on a typical day when you are drinking?: 3 or 4 3. How often do you have six or more drinks on one occasion?: Monthly Total Score: 7 OUSMANE-7 AMB Questionnaire OUSMANE-7 Date OUSMANE - 7 assessed: 12/09/24 Feeling nervous, anxious, or on edge: 0 = Not at all Not being able to stop or control worryin = Not at all Worrying too much about different things: 0 = Not at all Trouble relaxin = Not at all Being so restless that it is hard to sit still: 0 = Not at all Becoming easily annoyed or irritable: 0 = Not at all Feeling afraid as if something awful might happen: 0 = Not at all Total OUSMANE-7 score (0-4 normal; 5-9 mild; 10-14 moderate; 15-21 severe): 0 Source: Developed by Drs. Zain Mcmullen, Zita Zee, Conner Vickers and colleagues, with an educational nicky from [employer]. Physical exam (Primary Care) Vital Signs: Last Vital Signs Temp 97.1 F 06/29/25 09:07 Pulse 79 06/29/25 09:07 BP 132/64 06/29/25 09:07 Pulse Ox 97 06/29/25 09:07 Oxygen Delivery Method Room Air 06/29/25 09:07 BMI result Body Mass Index 48.5 Tobacco/Smoking Status: Tobacco use Status Tobacco use date assessed 06/29/25 06/29/25 09:14 Patient Tobacco Use Status Former Tobacco user 06/29/25 09:14 Tobacco use type Cigarette 06/29/25 09:14 e-Cigarette/Vaping Use Never Used 06/29/25 09:14 PHQ-9: PHQ-9 Score PHQ-9: Total score 4 06/29/25 09:14 Depression Screening Interpretation: Positive Thrive Assessment: Date of Thrive Assessment Date Thrive assessed 12/09/24 06/29/25 09:14 Currently or been in a relationship where the following occur: No concerns reported Results AMB Hemoglobin A1c AMB Hemoglobin A1c 7.6 % Last Edit by ELLIE Vilchis on 06/29/25 09:21 Results Reviewed Results Reviewed: Laboratory Last Values Hgb A1c (Clinic) 7.6 % (4.0-6.0) H 06/29/25 09:05 Coding Level of Care Code Est Pt Level 4 (73027) Complex EM visit Add On G2211 Diagnoses Type 2 diabetes mellitus without complication, without long-term current use of insulin E11.9 Diabetes mellitus intermediate manager insulin use: without nursing home use Class 2 severe obesity with body mass index (BMI) of 35 to 39.9 with serious comorbidity E66.01 Low back pain M54.50 Nocturia R35.1 Assessment & Plan Assessment & Plan (1) Type 2 diabetes mellitus without complication: Code(s): E11.9 - Type 2 diabetes mellitus without complications Category: Medical Qualifiers: Diabetes mellitus nursing home insulin use: without intermediate manager use Qualified Code(s): E11.9 - Type 2 diabetes mellitus without complications Plan: His nocturia symptoms could be due to the SGLPT inhibitor. Medication has been stopped and Trulicity started in its place. Patient was advised to check blood sugars twice a day. (2) Class 2 severe obesity with body mass index (BMI) of 35 to 39.9 with serious comorbidity: Code(s): E66.01 - Morbid (severe) obesity due to excess calories Category: Medical Plan: Counseling on the importance of diet and exercise done. (3) Low back pain: Code(s): M54.50 - Low back pain, unspecified Category: Medical Plan: MRI report from [facility] to be obtained. Based on the results further workup will be scheduled. (4) Nocturia: Code(s): R35.1 - Nocturia Plan: PSA done in November is 1.0. Recent blood work was done at [facility] will be reviewed. Plan History of Present Illness - The patient is a 70-year-old male presenting with concerns about prostate cancer and management of Type 2 Diabetes Mellitus. - Prostate cancer concern: The patient is worried about prostate cancer due to a family history; his father of cancer that started with the prostate. - Urinary tract infection: The patient had a recent urinary tract infection treated with antibiotics, which progressed to a kidney infection requiring hospitalization. - Elevated PSA levels: The patient reports a recent PSA level of 4.3 or 4.5, which is a concern given a previous level of 1 in November. - Type 2 Diabetes Mellitus: The patient has elevated blood sugars with an A1c of 7.6, and he is currently on Xigduo, which may be contributing to urinary symptoms. - Spinal stenosis: The patient has a history of spinal stenosis diagnosed after experiencing lower back pain post-knee surgery. Social History - Exercise: The patient was advised to walk an hour a day post-knee surgery but has reduced activity due to back pain. - Substance use: The patient has stopped drinking beer for a month to manage weight and back pain. Review of Systems - Genitourinary: Reports burning sensation during urination, intermittent improvement with antibiotics. - Musculoskeletal: Reports lower back pain, diagnosed with spinal stenosis. - Endocrine: Reports elevated blood sugar levels, A1c of 7.6. Physical Exam General: Cooperative and healthy appearing Nutritional Appearance: Well nourished Orientation/consciousness: Patient oriented x3 Limitations: No limitations Head: Normal to inspection General: Appearance normal, both eyes and all related structures Neck: Normal visual inspection Chest: Normal palpation of entire chest wall Respiratory: Normal respiratory effort Neurology: Patient oriented x3 Results - Labs: PSA level reported as 4.3 or 4.5, previous level was 1 in November. - Imaging: MRI confirmed spinal stenosis. Plan 1. Prostate Cancer Concern - Plan: Follow up with urologist for PSA monitoring and further evaluation. 2. Urinary Tract Infection - Plan: Discontinue Xigduo to reduce urinary symptoms and consider alternative diabetes management. 3. Type 2 Diabetes Mellitus - Plan: Transition from Xigduo to metformin and Trulicity for better glycemic control. 4. Spinal Stenosis - Plan: Obtain MRI results and consider referral to Dr. Shepard for surgical evaluation if necessary. Discussion Notes I discussed with the patient the low likelihood of prostate cancer despite family history, emphasizing the importance of monitoring PSA levels with the urologist. We reviewed the impact of Xigduo on urinary symptoms and decided to discontinue it, transitioning to metformin and Trulicity for diabetes management. I explained the potential need for surgical evaluation for spinal stenosis and will follow up with MRI results. The patient was advised to monitor blood sugar levels and report any significant changes. Patient Instructions - Follow up with urologist for PSA monitoring. - Discontinue Xigduo and start metformin and Trulicity as prescribed. - Monitor blood sugar levels twice daily and report any significant changes. - Follow up in one month for reassessment and review of MRI results. Orders: Orders AMB Hemoglobin A1c Today E11.9 - Type 2 diabetes mellitus without complications Medications: New metformin 1,000 mg PO BID 180 tabs 1RF dulaglutide (Trulicity) 1.5 mg (0.5 mL) subcut QWEEK 6.5 mL 1RF 90 days Discontinued dapaglifloz propaned-metformin 10-1,000 mg ER (Xigduo XR) Discontinued Reason: Doctor's Order 1 tab PO DAILY 90 ea 1RF
[2025-06-29 09:07] VITALS: BP 132/64; PULSE 79; TEMP 36.2; O2SAT 97; BMI 48.5
--- OUTSIDE RECORDS SUMMARY | 2025-06-29 09:28 | XMS_ITS | Clinical Summary ---
Author Organization [facility] Address [address] [place] [phone] Phone Care Team Providers Care Textbook Associate Name Role Phone Trevon Jerez MD Primary Care Provid er Allergies No known active allergies Medications lisinopril (PRINIVIL,ZESTR IL) 2.5 MG tablet 0 Active tamsulosin (FLOMAX) 0.4 mg Cap 0 Active atorvastatin (LIPITOR) 10 MG tablet 0 Active INVOKAMET 150-1,000 mg Tab 0 Active omeprazole (PRILOSEC) 20 MG tablet Take 20 mg by mouth. 1 Active XIGDUO XR 10-1,000 mg TBph 2 Active predniSONE (DELTASONE) 20 MG tablet 3 tablets X 3 days, 2 tablets X 3 days , 1 tablet X 3 days 18 tablet 2 Active Additional Information Patient not taking.Reported on 05/01/2025 docusate sodium (COLACE) 100 MG capsule Take 100 mg by mouth. 4 Active aspirin 325 MG EC tablet Take 325 mg by mouth. 4 Active celecoxib (CELEBREX) 200 MG capsule Take 200 mg by mouth. 4 Active omeprazole (PRILOSEC) 20 MG capsule Oral for 90 Active metFORMIN (GLUCOPHAGE) 1000 MG tablet metFORMIN HCl 1000mg Active omeprazole 20 mg TbLD Omeprazole Magnesium 20mg Active testosterone (TESTIM TD) Testim 1% Active Active Problems No known active problems Encounters Date Type Department Care Team Description 05/01/2025 9:50 AM EDT Office Visit [facility] [address] [id number] Kathryn Cruz PA-C Acute cystitis with hematuria (Primary Dx) from Last 3 Months Immunizations Immunization Administration Dates Next Due Pneumococcal polysaccharide PPSV23 05/29/2018 Td (adult) 5 Lf Tetanus Toxoid, PF, Adsorbed Tdap 05/25/2016 Social History Tobacco Use Types Packs/Day Years Used Date Smoking Tobacco: Former Smokeless Tobacco: Never Tobacco Cessation:Counseling Given: Not Answered Education Answer Date Recorded Are you interested in more education? Not on joaquín e 02/28/2023 Are you concerned about learning? Not on file 02/28/2023 No 02/28/2023 No 02/28/2023 Digital Access Answer Date Recorded No 03/29/2023 No 03/29/2023 Reliable internet access at home? Not on file 03/29/2023 Device with a working camera? Not on file Sex and Gender Information Value Date Recorded Sex Assigned at Not on file Legal Sex Male 11:26 AM EST Gender Identity Not on file Sexual Orientation Not on file Last Filed Vital Signs Vital Sign Reading Time Taken Comments Blood Pressure 128/75 05/01/2025 9:42 AM EDT Pulse 98 05/01/2025 9:42 AM EDT Temperature 36.6 C (97.9 F) 05/01/2025 9:42 AM EDT Respiratory Rate 18 05/01/2025 9:42 AM EDT Oxygen Saturation 97% 05/01/2025 9:42 AM EDT Inhaled Oxygen Concentration - - Weight 136.1 kg (300 lb) 05/01/2025 9:42 AM EDT Height 162.6 cm (5' 4 ) 05/01/2025 9:42 AM EDT Body Mass Index 51.49 05/01/2025 9:42 AM EDT Plan of Treatment Health Maintenance Due Date Last Done Comments LIPID PANEL 1953 DEPRESSION SCREENING 1965 SMOKING Hx and SMOKELESS TOBACCO SCREENING 1966 HEPATITIS C SCREENING 1971 COLOGUARD 1998 COLONOSCOPY 1998 COLORECTAL CANCER SCREENING 1998 FIT TEST 1998 FOBT 1998 SIGMOIDOSCOPY 1998 VIRTUAL COLONOSCOPY 1998 ZOSTER VACCINES (1 of 2) 2003 RSV VACCINE (1 - Risk 60-74 years 1-dose series) 2013 ABDOMINAL AORTIC ANEURYSM (AAA) SCREENING 2018 PNEUMOCOCCAL VACCINES (50+ years) (2 of 2 - PCV) 05/29/2019 05/29/2018 CREATININE LEVEL 10/07/2023 10/07/2022 POTASSIUM LEVEL 10/07/2023 10/07/2022 COVID-19 VACCINE (3 - 2023-2 5 season) 2024 06/04/2021, 05/14/2021 Adult Td,Tdap Booster 05/29/2028 05/29/2018 , 05/25/2016 HEPATITIS A VACCINES Aged Out No long er eligible based on patient's age to complete this topic HIB VACCINES Aged Out No longer eligi ble based on patient's age to complete this topic MENINGOCOCCAL VACCINES (ACWY) Aged Out No longer eligible based on patient's age to complete this topic MENINGOCOCCAL VACCINES (B) Aged Out N o longer eligible based on patient's age to complete this topic Medical Devices Not on file Procedures Procedure Name Priority Date/Time Associated Diagnosis Comments URINE CULTURE Routine 05/01/2025 10:26 AM EDT Acute cystitis with hematuria POCT URINE DIPSTICK Routine 05/01/2025 9 :50 AM EDT Acute cystitis with hematuria BASIC METABOLIC PANEL Routine 10/07/2022 8:28 AM EST Neck mass Benign neoplasm of larynx from Last 3 Months or Most Recently Relevant to Health Maintenance Results * (ABNORMAL) Urine Culture (05/01/2025 10:26 AM EDT) Special Requests None 05/01/2025 10:26 AM EDT [facility] Urine Culture >100,000 colony forming units per mL ESCHERICHIA COLI(A) 05/02/2025 9:27 AM T [facility] Urine (Urine) 05/01/2025 10: 26 AM EDT 05/01/2025 1:35 PM EDT Narrative Organism Antibiotic Method Susceptibility Escherichia coli Ampicillin MOODY METHOD <=2: Susceptible Escherichia coli Amoxicillin + Clavulanate MOODY METHOD <=2: Susceptible Escherichia coli Ampicillin + Sulbactam MOODY METHOD <=2: Susceptible Escherichia coli Cefazolin MOODY METHOD <=4: Susceptible Escherichia coli Cefepime MOODY METHOD <=1: Susceptible Escherichia coli Ceftazidime MOODY METHOD <=1: Susceptible Escherichia coli Ceftriaxone MOODY METHOD <=1: Susceptible Escherichia coli Ciprofloxacin MOODY METHOD <=0.25: Susceptible Escherichia coli Extended Spectrum B-lactamase MOODY MET HOD Negative Escherichia coli Gentamicin MOODY METHOD <=1: Susceptible Escherichia coli Levofloxacin MOODY METHOD <=0.12: Susceptible Escherichia coli Nitrofurantoin MOODY METHOD <=16: Susceptible Escherichia coli Piperacillin-tazobactam MOODY METHOD <=4: Susceptible Escherichia coli Trimethoprim/sulfamethoxazole MOODY MET HOD <=20: Susceptible Comment: Kathryn Cruz PA-C MICROBIOLOGY - GENER AL ORDERABLES Final Result [facility] [address] [place] [address] * (ABNORMAL) POCT Urine Dipstick (Automated) (05/01/2025 9:50 AM EDT) COLOR DK YELLOW [facility] TURBIDITY Clear [facility] GLUCOSE, POCT 2+(A) Negative [facility] KETONE, POCT 3+(A) Negative [facility] OCCULT BLOOD, POCT 1+(A) Negative [facility] SPECIFIC GRAVITY, POCT 1.010 1.001 - 1.030 [facility] ALBUMIN, POCT 2+(A) Negative [facility] Bili Negative Negative [facility] Urobilinogen 0.2 <1.0 [facility] NITRITE, POCT Positive(A) Negative COOL EY [facility] PH, POCT 5.5 5.0 - 8.0 [facility] WBC SCREEN, POCT Negative Negative [facility] 05/01/2025 9:50 AM EDT 05/01/2025 9:52 AM EDT Kathryn Cruz PA-C POINT OF CARE TEST O RDERABLES Final Result Performing Organization Address [facility]/ZIP Co de Phone Number [facility] [address] [address], [facility] [phone] * (ABNORMAL) Basic metabolic panel (10/07/2022 8:28 AM EST) SODIUM 137 133 - 146 mmol/L [facility] CHLORIDE 102 96 - 108 mmol/L [facility] POTASSIUM 4.3 3.3 - 5.1 mmol/L [facility] CO2 23 21 - 35 mmol/L [facility] BUN 17 6 - 19 mg/dL [facility] CREATININE 0.90 0.5 - 1.5 mg/dL [facility] GLUCOSE 124(H) 70 - 99 mg/dL [facility] CALCIUM 9.2 8.4 - 10.3 mg/dL [facility] EGFR 92 >59 mL/min/1.7 3m2 [facility] Comment:Estimated glomerular filtration rate calculated using the CKD-EPI refit equation. ANION GAP 16 10 - 20 mmol/L [facility] Blood 10/07/2022 8:28 AM EST 10/07/2022 8:30 AM EST Zain Rodriguez MD LAB BLOOD ORDERABLES Barbara l Result [facility] [address] [place] [address] from Last 3 Months or Most Recently Relevant to Health Maintenance Insurance MEDICARE A Member Subscriber Plan / Payer (Ef fective 2018-Present) Name:Rito Rohtman Member ID:[id number] Relation to Subscriber:Self Name:Rito Rothman Subscriber ID:[id number] Payer ID:[id number] Group ID:Not on file Type:Medicare Address: [employer] [address] [place], [place] [id number] [place], [place] [address] MEDICARE A Member Subscriber Plan / Payer (Ef fective 2018-Present) Name:Rito Rothman Member ID:[id number] Relation to Subscriber:Self Name:Rito Rothman Subscriber ID:[id number] Payer ID:[id number] Group ID:Not on file Type:Medicare Address: [employer] [address] [place], [place] [id number] [place] [address] HMO MEDICARE A [id number] [place], [place] [address]O [facility]IC[facility] A Member Subscriber Plan / Payer (Ef fective 2018-Present) Name:Rito Rothman Member ID:[id number] Relation to Subscriber:Self Name:Rito Rothman Subscriber ID:[id number] Payer ID:[id number] Group ID:Not on file Type:Medicare Address: [employer] [address] HMO MEDICARE A HMO MEDICARE A [facility] HMO MEDICARE A [facility] HMO MEDICARE A [facility] HMO Member Subscriber Plan / Payer (Ef fective 2019-Present) Name:Rito Rothman Relation to Subscriber:Spouse Name:RAUDEL ROTHMAN Date of :1960 Address: [address] [place] [address] Payer ID:Not on file Type:O Address: [place] [id number] Care Teams Textbook Associate Relationship Specialty Start Date End Date Trevon Jerez MD [address] [place] [phone] PCP - General Internal Medicine 09/14/20 Additional Source Comments The information contained in this document represents components of the legal health record. It is not the complete legal health record.[facility]
--- OUTSIDE RECORDS SUMMARY | 2025-06-29 09:28 | XMS_ITS | Patient Health Record ---
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 (Z79.84) Active confirmed Plan Of Treatment Future Test Test Name Order Date COLONOSCOPY 02/25/2022 Insurance Providers Payer Name Payer Address Payer Phone Subscriber Number Group Number Insured Name Patient Relationship to Insured Coverage Start Date Coverage End Date [facility] [address] [place] [phone] [id number] [employer] Self - patient is the insured Medical (General) History Medical History History ICD Code esophageal reflux diabetes mellitus low serum testosterone level BPH Elevated cholesterol KRISTYN, not using CPAP Surgical History Surgery Date(Month/Year) knee replacement, left x 2
--- OUTSIDE RECORDS SUMMARY | 2025-06-29 09:28 | XMS_ITS | Encounter Summary ---
Author Organization [facility] Address [address] [facility] [address] [place] [address] Phone Care Team Providers Care Opal Polisher Name Role Phone Trevon Jerez MD Primary Care Provid er Reason for Referral * MRI/CAT Scan - Closed Specialty Diagnoses / Procedures Referred By Mario landeros Referred To Contact Radiology Diagnoses Localized swelling, mass and lump, neck Benign neoplasm of larynx Procedures CT Neck CHG CT SCAN,SOFT TISSUE NECK,W/O CONTRAST CHG CT NECK TISSUE CONTRAST Zain Rodriguez MD Phone: tel: fax: [email or web address] Referral ID Status Reason Start Date Expiration Date Visits Re quested Visits Authorized [id number] Closed 09/18/2022 11/12/2022 1 1 Encounter Details Date Type Department Care Team (Latest Contact Info) Description 09/18/2022 Transcribe Orders Virtual Department 30 [place] [address] Zain Rodriguez MD [address] [place] [address], [address] [place] [address] [email or web address] Localized swelling, mass and lump, neck (Primary Dx); Benign neoplasm of larynx Social History Tobacco Use Types Packs/Day Years Used Date Smoking Tobacco: Former Smokeless Tobacco: Never Sex and Gender Information Value Date Recorded Sex Assigned at Not on file Legal Sex Male 11:26 AM EST Gender Identity Not on file Sexual Orientation Not on file documented as of this encounter Plan of Treatment Not on file documented as of this encounter Results * CT NECK SOFT TISSUE WITH CONTRAST (10/11/2022 1:24 PM EST) Anatomical Region Laterality Modality Neck Computed Tomogra phy 10/12/2022 10:0 8 AM EST Impressions 10/12/2022 10:14 AM EST No evidence of cervical mass or collection by CT Narrative 10/12/2022 10:[address] NECK SOFT TISSUE WITH CONTRAST TECHNIQUE: Multidetector-row CT of the neck was performed with intravenous contrast using tailored dose modulation techniques. Images were reconstructed in the axial, coronal, and sagittal planes. COMPARISON: None FINDINGS: Aerodigestive Tract: Normal. The mucosa appears symmetrical. Lymph Nodes: Normal. There are no nodes meeting CT criteria for pathologic involvement. Salivary Glands: Normal. No obvious lesion is present. Thyroid Gland: The gland is homogenous in attenuation. Vessels: The major cervical vessels enhance normally. Paranasal Sinuses and Mastoids: Mild maxillary sinus mucosal thickening. The paranasal sinuses and mastoid air cells are otherwise well-aerated. Brain and Orbits: Normal. No detectable abnormality is present in the imaged portions of the brain and orbits. Lung Apices: Normal. No abnormal opacity is present. Bones and Soft Tissues: Cervical spine degenerative changes. No suspicious osseous lesions are present. Procedure Note Jhonatan Najera MD - 10/12/2022 CT NECK SOFT TISSUE WITH CONTRAST TECHNIQUE: Multidetector-row CT of the neck was performed with intravenouscontrast using tailored dose modulation techniques. Images werereconstructed in the axial, coronal, and sagittal planes. COMPARISON: None FINDINGS: Aerodigestive Tract: Normal. The mucosa appears symmetrical. Lymph Nodes: Normal. There are no nodes meeting CT criteria for pathologicinvolvement. Salivary Glands: Normal. No obvious lesion is present. Thyroid Gland: The gland is homogenous in attenuation. Vessels: The major cervical vessels enhance normally. Paranasal Sinuses and Mastoids: Mild maxillary sinus mucosal thickening.The paranasal sinuses and mastoid air cells are otherwise well-aerated. Brain and Orbits: Normal. No detectable abnormality is present in theimaged portions of the brain and orbits. Lung Apices: Normal. No abnormal opacity is present. Bones and Soft Tissues: Cervical spine degenerative changes. No suspiciousosseous lesions are present. IMPRESSION: No evidence of cervical mass or collection by CT Zain Rodriguez MD IMG CT XSPECIALTY ORDERAB LES Final Result documented in this encounter Visit Diagnoses Diagnosis Localized swelling, mass and lump, neck- Primary Swelling, mass, or lump in head and neck Benign neoplasm of larynx Localized swelling, mass and lump, neck Swelling, mass, or lump in head and neck Benign neoplasm of larynx documented in this encounter Care Teams Opal Polisher Relationship Specialty Start Date End Date Trevon Jerez MD [address] [place] [address] PCP - General Internal Medicine 09/14/20 documented as of this encounter Additional Source Comments The information contained in this document represents components of the legal health record. It is not the complete legal health record.[facility]
--- OUTSIDE RECORDS SUMMARY | 2025-06-29 09:28 | XMS_ITS | Encounter Summary ---
Author Organization [facility] Address [address] [place] [address] Care Team Providers Care Completion Manager Name Role Phone Trevon Jerez MD Primary Care Provider +1- [phone] Encounter Details Date Type Department Care Team (Late st Contact Info) Description 05/24/2025 Lab Requisition [facility] - Main Lab [address] [facility] [place] [address] Sy Oliveira MD [address] [facility] [address] [place], [place] [id number] Urinary tract infection, site not specified; Benign [...] Escherichia coli(A) MOODY 05/26/2025 10:51 AM EDT [facility] Urine Urine specimen obtained [...] LAB MICROBIOLOGY - GENERAL ORDERABLES Final Result [facility] ([facility] [address] [place] [address], documented in this encounter Visit Diagnoses Diagnosis Urinary tract infection, site not specified Benign prostatic hyperplasia with lower urinary tract symptoms documented in this encounter Care Teams Completion Manager Relationship Specialty Start Date End Date Trevon Jerez MD [address] [place] [address] PCP - General Internal Medicine 05/24/25 documented as of this encounter
--- OUTSIDE RECORDS SUMMARY | 2025-06-29 09:28 | XMS_ITS | Clinical Summary ---
Author Organization [address] Address [address] [place] [address] Phone Care Team Providers Care Machine Shorthand Teacher Name Role Phone Trevon Jerez MD Primary Care Provider +1- [phone] Encounters Date Type Department Care Team Description 05/24/2025 Lab Requisition [facility] - Main Lab [address] [place] [address] Sy Oliveira MD Urinary tract infection, site not specified; Benign prostatic hyperplasia with lower urinary tract symptoms from Last 3 Months Social History Tobacco Use Types Packs/Day Years Used Date Smoking Tobacco: Never Assessed Sex and Gender Information Value Date Recorded Sex Assigned at Not on file Legal Sex Male 6:02 PM EDT Gender Identity Not on file Sexual Orientation Not on file Plan of Treatment Health Maintenance Due Date Last Done Comments DTaP,Tdap,and Td Vaccines (1 - Tdap) 01/04/1972 Pneumococcal Vaccine: 50+ Ye ars (1 of 1 - PCV) 2003 Zoster Vaccines (1 of 2) 2003 COVID-19 Vaccine ( - 2023-2 5 season) 2024 Depression Screening 11/03/2024 Abdominal Aortic Aneurysm (A AA) Screen 05/25/2025 Cholesterol Screening (Lipid Panel) 05/25/2025 Colorectal Cancer Screening: Colonoscopy 05/25/2025 Falls Risk Assessment 05/25/2025 Hepatitis C Screening 05/25/2025 Social Influencers of Health Screening 05/25/2025 Influenza Vaccine (#1) 2025 RSV Immunization Adult Patie nts (1 - 1-dose 75+ series) 01/04/2028 HIB Vaccines Aged Out No longer eligi ble based on patient's age to complete this topic HPV Vaccines Aged Out No longer eligi ble based on patient's age to complete this topic Hepatitis A Vaccines Aged Out No long er eligible based on patient's age to complete this topic Hepatitis B Vaccines Aged Out No long er eligible based on patient's age to complete this topic IPV Vaccines Aged Out No longer eligi ble based on patient's age to complete this topic MMR Vaccines Aged Out No longer eligi ble based on patient's age to complete this topic Meningococcal ACWY Vaccine Aged Out N o longer eligible based on patient's age to complete this topic Meningococcal B Vaccine Aged Out No l onger eligible based on patient's age to complete this topic RSV Immunization Patients Un yu 20 months Aged Out No longer eligible b ased on patient's age to complete this topic Varicella Vaccines Aged Out No longer eligible based on patient's age to complete this topic Procedures Procedure Name Priority Date/Time Associated Diagnosis Comments CULTURE URINE Routine 05/24/2025 3:45 PM EDT Urinary tract infection, site not specified Benign prostatic hyperplasia with lower urinary tract symptoms from Last 3 Months Results * (ABNORMAL) Culture urine (05/24/2025 3:45 PM EDT) Culture, Urine >=100,000 CFU/mL Escherichia coli(A) MOODY 05/26/2025 10:51 AM EDT [facility] Urine Urine specimen obtained by clean [...] LAB MICROBIOLOGY - GENERAL ORDERABLES Final Result [facility] [address] [place] [address], [place] [phone] from Last 3 Months Insurance [facility] Care Teams Machine Shorthand Teacher Relationship Specialty Start Date End Date Trevon Jerez MD [address] [place] [address] PCP - General Internal Medicine 05/24/25
--- OUTSIDE RECORDS SUMMARY | 2025-06-29 09:28 | XMS_ITS | Encounter Summary ---
Author Organization [facility] Address [address] [facility] [address] [place] [address] Phone Care Team Providers Care Trash Man Name Role Phone Trevon Jerez MD Primary Care Provid er Encounter Details Date Type Department Care Team (Late st Contact Info) Description 09/18/2022 Procedure Pass [facility], Ct Scan - [facility] [address] [place] [address] Social History Tobacco Use Types Packs/Day Years [...] on filedocumented in this encounter Care Teams Trash Man Relationship Specialty Start Date End Date Trevon Jerez MD [address] [place] [address] [address] [place] [address] PCP - General Internal Medicine 09/14/20 documented as of this encounter Additional Source Comments The information contained in this document represents components of the legal health record. It is not the complete legal health record.[facility]
== END 2025-06-29 09:46 | disposition home or self-care (01) ==
LOC: HO.HMCH 09:01
PROVIDERS: PCP Internal Medicine; Visit Provider Internal Medicine
DX: E11.9 Type 2 diabetes mellitus without complications (principal); E66.01 Morbid (severe) obesity due to excess calories; Z68.42 Body mass index [BMI] 45.0-49.9, adult; M54.50 Low back pain, unspecified; R35.1 Nocturia

== ENCOUNTER → 2025-06-29 09:00 | Outpatient (BNVA) | payer BC, SELFPAY | PROVIDERS: PCP Internal Medicine; Visit Provider Internal Medicine | DX: E11.9 Type 2 diabetes mellitus without complications (principal); I10 Essential (primary) hypertension; E66.01 Morbid (severe) obesity due to excess calories; M54.50 Low back pain, unspecified; R35.1 Nocturia; Z68.42 Body mass index [BMI] 45.0-49.9, adult | CPT/HCPCS: 83036; 96127 ==

== ENCOUNTER 2025-07-27 07:49 | Outpatient (AMB) | payer BC, SELFPAY ==
--- OUTSIDE RECORDS SUMMARY | 2025-07-27 07:53 | XMS_ITS | Clinical Summary ---
Author Organization [address] Address [address] [place] [address] Phone Care Team Providers Care Door Hanger Name Role Phone Trevon Jerez MD Primary Care Provider +1- [phone] Encounters Date Type Department Care Team Description 05/24/2025 Lab Requisition [facility] - Main Lab [address] [place] [address] Sy Oliveira MD Urinary tract [...] 2003 Zoster Vaccines (1 of 2) 2003 Depression Screening 11/03/2024 Abdominal Aortic Aneurysm (A AA) Screen 05/25/2025 Cholesterol Screening (Lipid Panel) 05/25/2025 Colorectal Cancer Screening: Colonoscopy 05/25/2025 Falls Risk Assessment 05/25/2025 Hepatitis C Screening 05/25/2025 Social Influencers of Health Screening 05/25/2025 COVID-19 Vaccine ( - 2023-2 5 season) 2025 Influenza Vaccine (#1) 2025 RSV Immunization Adult [...] Escherichia coli(A) MOODY 05/26/2025 10:51 AM EDT [facility] Urine Urine specimen [...] MICROBIOLOGY - GENERAL ORDERABLES Final Result [facility] LAB [address] [place] [address], [place] [phone] from Last 3 Months Insurance [facility] Care Teams Door Hanger Relationship Specialty Start Date End Date Trevon Jerez MD [address] [place] [address] PCP - General Internal Medicine 05/24/25
--- OUTSIDE RECORDS SUMMARY | 2025-07-27 07:53 | XMS_ITS | Clinical Summary ---
Author Organization [facility] Address [address] [facility] [address] [place] [address] Phone Care Team Providers Care Pie Bakery Laborer Name Role Phone Trevon Jerez MD Primary [...] Visit [facility] at [address] [id number] Kathryn Cruz PA-C Acute cystitis with hematuria [...] LEVEL 10/07/2023 10/07/2022 POTASSIUM LEVEL 10/07/2023 10/07/2022 INFLUENZA VACCINE (#1) 2025 COVID-19 VACCINE (3 - 2024-2 6 season) 2025 06/04/2021, 05/14/2021 Adult Td,Tdap Booster 05/29/2028 05/29/2018 [...] Special Requests None 05/01/2025 10:26 AM EDT [facility] Urine Culture >100,000 colony forming units per mL ESCHERICHIA COLI(A) 05/02/2025 9:27 AM EDT [facility] Urine (Urine) 05/01/2025 10: 26 AM EDT [...] MICROBIOLOGY - GENER AL ORDERABLES Final Result [address] [address] * (ABNORMAL) POCT Urine Dipstick (Automated) (05/01/2025 9:50 AM EDT) COLOR DK YELLOW [facility] TURBIDITY Clear [facility] GLUCOSE, POCT 2+(A) Negative [facility] KETONE, POCT 3+(A) Negative [facility] OCCULT BLOOD, POCT 1+(A) Negative [facility] SPECIFIC GRAVITY, POCT 1.010 1.001 - 1.030 [facility] ALBUMIN, POCT 2+(A) Negative [facility] Bili Negative Negative [facility] Urobilinogen 0.2 <1.0 [facility] NITRITE, POCT Positive(A) Negative COOL EY [facility] PH, POCT 5.5 5.0 - 8.0 [facility] WBC SCREEN, POCT Negative Negative [facility] 05/01/2025 9:50 AM EDT 05/01/2025 9:52 AM EDT Kathryn Cruz PA-C POINT OF CARE TEST O RDERABLES Final Result Performing Organization Address [facility]/ZIP Co de Phone Number [facility] AT [address] [address], [facility] [phone] * (ABNORMAL) Basic metabolic panel (10/07/2022 8:28 AM EST) SODIUM 137 133 - 146 mmol/L [facility] CHLORIDE 102 96 - 108 mmol/L [facility] POTASSIUM 4.3 3.3 - 5.1 mmol/L [facility] CO2 23 21 - 35 mmol/L [facility] BUN 17 6 - 19 mg/dL [facility] CREATININE 0.90 0.5 - 1.5 mg/dL [facility] GLUCOSE 124(H) 70 - 99 mg/dL [facility] CALCIUM 9.2 8.4 - 10.3 mg/dL [facility] EGFR 92 >59 mL/min/1.7 3m2 [facility] Comment:Estimated glomerular filtration rate calculated using the CKD-EPI refit equation. ANION GAP 16 10 - 20 mmol/L [facility] Blood 10/07/2022 8:28 AM EST 10/07/2022 8:30 AM EST us Zain Rodriguez MD LAB BLOOD ORDERABLES Barbara l Result [facility] [address] [place] [address] from Last 3 Months or Most Recently Relevant to Health Maintenance Insurance MEDICARE A Member Subscriber Plan / Payer (Ef fective 2018-Present) Name:Rito Rothman Member ID:[id number] Relation to Subscriber:Self Name:Rito Rothman Subscriber ID:[id number] Payer ID:[id number] Group ID:Not on file Type:Medicare Address: [employer] [address] [place], [place] [id number] [place] [address] HMO MEDICARE A HMO MEDICARE A [place] [id number] MED[address] A HMO MEDICARE A [facility] HMO MEDICARE A [facility] MEDICARE A HMO Member Subscriber Plan / Payer (Ef fective 2019-Present) Name:StephanRito Relation to Subscriber:Spouse Name:RAUDEL ROTHMAN Date of :1960 Address: [address] [place] [address] Payer ID:Not on file Type:O Address: [place] [id number] Care Teams Pie Bakery Laborer Relationship Specialty Start Date End Date Trevon Jerez MD [address] [place] [address] PCP - General Internal Medicine 09/14/20 Additional Source Comments The information contained in this document represents components of the legal health record. It is not the complete legal health record.[facility]
--- OUTSIDE RECORDS SUMMARY | 2025-07-27 07:53 | XMS_ITS | Encounter Summary ---
Author Organization [facility] Address [address] [facility] [address] [place] [address] Phone Care Team Providers Care Needleworker Name Role Phone Trevon Jerez MD Primary Care Provid er Reason for Referral * MRI/CAT Scan - Closed Specialty Diagnoses / Procedures Referred By Mario landeros Referred To Contact Radiology Diagnoses Localized swelling, mass and lump, neck Benign neoplasm of larynx Procedures CT Neck CHG CT SCAN,SOFT TISSUE NECK,W/O CONTRAST CHG CT NECK TISSUE CONTRAST Zain Rodriguez MD Phone: tel: fax: mailto:[email or web address] Referral ID Status Reason Start Date Expiration Date Visits Re quested Visits Authorized [id number] Closed 09/18/2022 11/12/2022 1 1 Encounter Details Date Type Department Care Team (Latest Contact Info) Description 09/18/2022 Transcribe Orders Virtual Department [address] [place] [address] Zain Rodriguez MD [address] [place] [address], [address] [place] [address] [email or web address] Localized swelling, mass and lump, neck [...] larynx documented in this encounter Care Teams Needleworker Relationship Specialty Start Date End Date Trevon Jerez MD [address] [place] [address] PCP - General Internal Medicine 09/14/20 documented as of this encounter Additional Source Comments The information contained in this document represents components of the legal health record. It is not the complete legal health record.[facility]
--- OUTSIDE RECORDS SUMMARY | 2025-07-27 07:53 | XMS_ITS | Encounter Summary ---
Author Organization [facility] Address [address] [place] [address] Care Team Providers Care Balancing Machine Operator Name Role Phone Trevon Jerez MD Primary Care Provider +1- [phone] Encounter Details Date Type Department Care Team (Late st Contact Info) Description 05/24/2025 Lab Requisition [facility] - Main Lab [address] [facility] [employer] [address] Sy Oliveira MD [address] [facility] [address] [place], [place] [id number] Urinary tract infection, site not specified; Benign [...] Escherichia coli(A) MOODY 05/26/2025 10:51 AM EDT [facility] Urine Urine specimen [...] LAB MICROBIOLOGY - GENERAL ORDERABLES Final Result [facility] [address] [place] [address], documented in this encounter Visit Diagnoses Diagnosis Urinary tract infection, site not specified Benign prostatic hyperplasia with lower urinary tract symptoms documented in this encounter Care Teams Balancing Machine Operator Relationship Specialty Start Date End Date Trevon Jerez MD [address] [place] [address] PCP - General Internal Medicine 05/24/25 documented as of this encounter
--- OUTSIDE RECORDS SUMMARY | 2025-07-27 07:53 | XMS_ITS | Patient Health Record ---
Author Organization [facility] Address [address] [place] [address] Care Team Providers Care Gas Shovel Operator Name Role Phone FARNAZ COLMENARES Primary Care Provider Eliezer Cruz Jr Unavailable [phone] Allergies No Known Allergies Reason For Referral [...] Problem Status W/U Status Risk Notes Problem 309005363 Colon cancer screening (Z12.11) Active confirmed Problem [id number] Encounter for other preprocedural examination (Z01.818) Active confirmed Problem [id number] oysterman (current) use of oral hypoglycemic drugs (Z79.84) Active confirmed Plan Of Treatment Future Test Test Name Order Date COLONOSCOPY 02/25/2022 Insurance Providers Payer Name Payer Address Payer Phone Subscriber Number Group Number Insured Name Patient Relationship to Insured Coverage Start Date Coverage End Date [facility] [address] [place] [phone] [id number] [employer] Self - patient is the insured Medical (General) History Medical History History ICD Code esophageal reflux diabetes mellitus low serum testosterone level BPH Elevated cholesterol KRISTYN, not using CPAP Surgical History Surgery Date(Month/Year) knee replacement, left x 2
--- OUTSIDE RECORDS SUMMARY | 2025-07-27 07:53 | XMS_ITS | Encounter Summary ---
Author Organization [facility] Address [address] [facility] [address] [place] [address] Phone Care Team Providers Care Clinical Data Specialist Name Role Phone Trevon Jerez MD Primary Care Provid er Encounter Details Date Type Department Care Team (Late st Contact Info) Description 09/18/2022 Procedure Pass [facility], Ct Scan - [facility] [address] [place] [address] Social History Tobacco Use Types Packs/Day Years [...] on filedocumented in this encounter Care Teams Clinical Data Specialist Relationship Specialty Start Date End Date Trevon Jerez MD [address] [place] [address] [address] [place] [address] PCP - General Internal Medicine 09/14/20 documented as of this encounter Additional Source Comments The information contained in this document represents components of the legal health record. It is not the complete legal health record.[facility]
--- NOTE | 2025-07-27 08:20 | A.OFFPC_ITS ---
Vital Signs 07/27/25 08:21 Height 5 ft 4 in Weight 277 lb 2 oz BMI 47.6 BP 120/70 Blood Pressure Location Lt brachial Position Sitting Pulse 86 Pulse Source Pulse Oximeter Temp 97.1 F Temp Source Temporal Artery Scan Pulse Oximetry (%) 98 Oxygen Delivery Method Room Air Intake Visit Reasons: 1 mo follow up medications Intake Note: Patient is here to follow up on Medication review. Ground Worker Required: No Kiln Tester: Present Accompanied by: Spouse Allergies No Known Allergies Allergy (Verified 07/27/25 08:20) Tobacco use date assessed: 07/27/25 Fall risk assessment: No Falls in past year Last assessed Fall Risk: 07/27/25 Dental Screening Dental Screen Date: 12/09/24 HPI 1 mo follow up medications HPI Details 70-year-old male presents to the office for a follow-up visit. Since he stopped the SGLT inhibitors, the burning urination symptoms have resolved. He could not afford the Trulicity that was offered as a substitute. Patient's fasting blood sugars are elevated and postprandial blood sugars are greater than 200. He also went to the urologist and a repeat PSA was greater than 5. A prostate biopsy has been scheduled. Patient had an MRI in June and would like to know the results. [facility] [place] Medical History Elevated PSA Spinal stenosis at L4-L5 level Low back pain Low serum testosterone level BPH (benign prostatic hyperplasia) Class 2 severe obesity with body mass index (BMI) of 35 to 39.9 with serious comorbidity Essential hypertension Hypercholesterolemia Type 2 diabetes mellitus without complication Surgical History History of knee replacement procedure of right knee History of total left knee replacement History of colonoscopy (~04/02/22) Family History Father Prostate cancer Mother No problems noted. Social History Housing: House Alcohol intake: current Alcohol intake frequency: a few times a week Patient Tobacco Use Status: Former Tobacco user Tobacco use type: Cigarette e-Cigarette/Vaping Use: Never Used Second Hand Smoke Exposure: Yes service: No Current occupational status: employed and retired Cognitive needs: Yes Hearing needs: No Vision needs: No Questionnaire Thrive Questionnaire Date Thrive assessed: 06/29/25 I am a: Patient What is your living situation today?: I have a steady place to live Within the past 12 months, did the food you bought not last and you didn't have the money to get more?: Never true Within the past 12 months, did you worry whether your food would run out before you got money to buy more?: Never true Do you have trouble paying for medicines?: I choose not to answer this question Do you have trouble getting transportation to medical appointments?: No Do you have trouble paying your heating and electricity bill?: No Do you have trouble taking care of your child, family member or friend?: No Do you have trouble with day-to-day activities such as bathing, preparing meals, shopping, managing finances, etc.?: No Are you currently unemployed and looking for a job?: No Are you interested in more education?: No Please select the resources that you would like help with: None Currently or been in a relationship where the following occur: No concerns reported THRIVE Score: 0 OUSMANE-7 AMB Questionnaire OUSMANE-7 Date OUSMANE - 7 assessed: 12/09/24 Source: Developed by Drs. Zain Mcmullen, Zita Zee, Conner Vickers and colleagues, with an educational nicky from [employer]. Physical exam (Primary Care) Vital Signs: Last Vital Signs Temp 97.1 F 07/27/25 08:21 Pulse 86 07/27/25 08:21 BP 120/70 07/27/25 08:21 Pulse Ox 98 07/27/25 08:21 Oxygen Delivery Method Room Air 07/27/25 08:21 BMI result Body Mass Index 47.6 Tobacco/Smoking Status: Tobacco use Status Tobacco use date assessed 07/27/25 07/27/25 08:25 Patient Tobacco Use Status Former Tobacco user 07/27/25 08:25 Tobacco use type Cigarette 07/27/25 08:25 e-Cigarette/Vaping Use Never Used 07/27/25 08:25 Thrive Assessment: Date of Thrive Assessment Date Thrive assessed 06/29/25 07/27/25 08:25 Currently or been in a relationship where the following occur: No concerns reported Const General: cooperative and healthy appearing Nutritional Appearance: well nourished Orientation/consciousness: patient oriented x3 Limitations: no limitations HENMT Head: Yes normal to inspection Eyes General: appearance normal, both eyes and all related structures Neck Neck: Yes normal visual inspection Chest Chest palpation & inspection: normal palpation of entire chest wall Resp Effort & Inspection: normal respiratory effort Neuro General: patient oriented x3 Coding Level of Care Code Est Pt Level 4 (86440) Complex EM visit Add On G2211 Diagnoses Spinal stenosis at L4-L5 level M48.061 Type 2 diabetes mellitus without complication, without long-term current use of insulin E11.9 Diabetes mellitus fpc insulin use: without superintendent terminal use Elevated PSA R97.20 Assessment & Plan Assessment & Plan (1) Spinal stenosis at L4-L5 level: Code(s): M48.061 - Spinal stenosis, lumbar region without neurogenic claudication Category: Medical Plan: A referral to Dr Shepard. To determine if he is a surgical candidate. (2) Type 2 diabetes mellitus without complication: Code(s): E11.9 - Type 2 diabetes mellitus without complications Category: Medical Qualifiers: Diabetes mellitus superintendent terminal insulin use: without superintendent terminal use Qualified Code(s): E11.9 - Type 2 diabetes mellitus without complications Plan: Unable to afford TrulicYOGASMOGA. Pioglitazone ordered. Advised patient to report with fasting and post prandial blood sugars. He will be taking metformin and pioglitazone (3) Elevated PSA: Code(s): R97.20 - Elevated prostate specific antigen [PSA] Category: Medical Plan: On his own, he has made an appt with the urologist. Medications: New pioglitazone 15 mg PO DAILY 90 tabs 0RF Discontinued dulaglutide (Trulicity) Discontinued Reason: Doctor's Order 1.5 mg (0.5 mL) subcut QWEEK 90 days 6.5 mL 1RF
[2025-07-27 08:21] VITALS: BP 120/70; PULSE 86; TEMP 36.2; O2SAT 98; BMI 47.6
== END 2025-07-27 08:49 | disposition home or self-care (01) ==
LOC: HO.HMCH 07:50
PROVIDERS: PCP Internal Medicine; Visit Provider Internal Medicine
DX: M48.061 Spinal stenosis, lumbar region without neurogenic claudication (principal); E11.9 Type 2 diabetes mellitus without complications; R97.20 Elevated prostate specific antigen [PSA]

== ENCOUNTER 2025-10-07 07:53 | Outpatient (REF) | payer BC, SELFPAY ==
[2025-10-07 08:40] LABS: Hematocrit 39.5 % (42.0-52.0); Hemoglobin 12.8 g/dl (14.0-18.0); Mean Corpuscular HGB Conc 32.4 g/dl (31.0-36.0); Mean Corpuscular Hemoglobin 30.5 pg (27.0-33.0); Mean Corpuscular Volume 94.3 fL (80.0-98.0); NRBC Abs Auto 0.000 X10*3/uL (0.0-0.012); NRBC Pct Auto 0.0 /100WBC (0.0-0.2); Platelet Count 275 X10*3/uL (160-400); Red Blood Count 4.19 X10*6/uL (4.60-5.80); White Blood Count 7.8 X10*3/uL (4.8-10.8)
[2025-10-07 08:46] LABS: Appearance Urine Turbid; Glucose Urine UA Negative (Negative); PH 6.5 (5.0-9.0); Specific Gravity - Urine 1.010 (1.005-1.025); UMIC TRIGGER UA YES
[2025-10-07 09:23] LABS: Alanine Aminotransferase 9 U/L (0-40); Albumin Level 4.2 g/dL (3.5-5.0); Alkaline Phosphatase 87 U/L (39-117); Anion Gap 12 (12-20); Aspartate Amino Transferase 19 U/L (5-37); Blood Urea Nitrogen 17 mg/dL (9-16); Calcium 9.1 mg/dL (8.4-10.2); Carbon Dioxide 27 mmol/L (22-29); Chloride 107 mmol/L (96-108); Cholesterol 134 mg/dL (<200); Estimated Glomerular Filt Rate > 60; HDL Cholesterol 49 mg/dL (>40); Potassium 4.5 mmol/L (3.3-5.1); Sodium 141 mmol/L (135-145); Total Protein 7.3 g/dL (6.5-8.0); Triglycerides 80 mg/dL (<150)
[2025-10-07 09:33] LABS: Thyroid Stimulating Hormone 0.77 uIU/mL (0.32-4.0)
== END 2025-10-07 07:54 | disposition home or self-care (01) ==
LOC: HO.LAB 07:53
PROVIDERS: PCP Internal Medicine; Visit Provider Internal Medicine
DX: E11.9 Type 2 diabetes mellitus without complications (principal)
CPT/HCPCS: 36415; 80048; 80061; 80076; 81001; 83036; 84443; 85027

== ENCOUNTER 2025-10-12 07:33 | Outpatient (AMB) | payer BC, SELFPAY ==
[2025-10-12 07:44] VITALS: BP 130/62; PULSE 76; O2SAT 96; BMI 49.9
--- NOTE | 2025-10-12 07:44 | A.OFFPC_ITS ---
Vital Signs 10/12/25 07:44 Height 5 ft 4 in Weight 291 lb BMI 49.9 BP 130/62 Blood Pressure Location Lt brachial Position Sitting Pulse 76 Pulse Source Pulse Oximeter Pulse Oximetry (%) 96 Oxygen Delivery Method Room Air Intake Visit Reasons: 3 month f/u Allergies No Known Allergies Allergy (Verified 10/12/25 08:28) Medication List - Last Reconciled 10/12/25 by Trevon Jerez MD atorvastatin 10 mg PO BEDTIME blood sugar diagnostic (FreeStyle Lite Strips) Once a day cholecalciferol (vitamin D3) 1,250 mcg PO QWEEK 3 months lisinopril 2.5 mg PO DAILY metformin 1,000 mg PO BID omeprazole 20 mg PO DAILY pioglitazone 15 mg PO DAILY sulfamethoxazole-trimethoprim 800-160 mg (Bactrim DS) 1 tab PO BID 14 days tamsulosin 0.4 mg PO DAILY Tobacco use date assessed: 07/27/25 Fall risk assessment: No Falls in past year Last assessed Fall Risk: 10/12/25 Dental Screening Dental Screen Date: 12/09/24 HPI HPI Comments History of Present Illness Details History of Present Illness - The patient is a 70 year old male pres enting to review recent lab results and discuss urinary symptoms. - His primary concern is regarding urina ry symptoms and findings on urinalysis, which revealed trace protein, blood, leukocytes, and elevated red and white blood cells in the urine. - He reports a long-standing history of dysuria, which is intermittent but has become more bearable over time, along with urinary frequency. - The urinary issues began in April, lead ing to treatment with two weeks of antibiotics in May after an urgent care and ER visit, followed by another 10- day course in early June prescribed by his urologist. - An MRI of his prostate identified a le nikolai described as a hot spot, and he is scheduled for a prostate biopsy with Dr. Oliveira on October 31. - The patient has a history of type 2 di abetes, for which he takes metformin and pioglitazone. - He has a history of back issues for wh ich a procedure was previously discussed. - He reports he has never received a flu shot. Social History - Alcohol Use: The patient reports occas ional consumption of beer. - Exercise: He has been advised to walk for an hour, five times a week, taking rests as needed. - Diet: The patient eats two meals a day and has been counseled to have 10 out of 14 meals per week be healthy and nutritious, with a focus on reducing carbohydrates and sugar, and increasing vegetables. - He was advised to eat fruits like berr ies and apples, while avoiding bananas, pears, and oranges due to higher sugar content. Results - Urinalysis: Positive for trace protein , blood, leukocytes, with high red blood cell and white blood cell counts. - Hemoglobin A1c: 7.3%. - Blood Glucose: Random sugar level was elevated. - Imaging: Prostate MRI revealed a hot spot. [facility] Medical History Elevated PSA Spinal stenosis at L4-L5 level Low back pain Low serum testosterone level BPH (benign prostatic hyperplasia) Class 2 severe obesity with body mass index (BMI) of 35 to 39.9 with serious comorbidity Essential hypertension Hypercholesterolemia Type 2 diabetes mellitus without complication Surgical History History of knee replacement procedure of right knee History of total left knee replacement History of colonoscopy (~04/02/22) Family History Father Prostate cancer Mother No problems noted. Social History Housing: House Alcohol intake: current Alcohol intake frequency: a few times a week Patient Tobacco Use Status: Former Tobacco user Tobacco use type: Cigarette e-Cigarette/Vaping Use: Never Used Second Hand Smoke Exposure: Yes service: No Current occupational status: employed and retired Cognitive needs: Yes Hearing needs: No Vision needs: No Questionnaire Thrive Questionnaire Date Thrive assessed: 06/29/25 I am a: Patient What is your living situation today?: I have a steady place to live Within the past 12 months, did the food you bought not last and you didn't have the money to get more?: Never true Within the past 12 months, did you worry whether your food would run out before you got money to buy more?: Never true Do you have trouble paying for medicines?: I choose not to answer this question Do you have trouble getting transportation to medical appointments?: No Do you have trouble paying your heating and electricity bill?: No Do you have trouble taking care of your child, family member or friend?: No Do you have trouble with day-to-day activities such as bathing, preparing meals, shopping, managing finances, etc.?: No Are you currently unemployed and looking for a job?: No Are you interested in more education?: No Please select the resources that you would like help with: None Currently or been in a relationship where the following occur: No concerns reported THRIVE Score: 0 OUSMANE-7 AMB Questionnaire OUSMANE-7 Date OUSMANE - 7 assessed: 12/09/24 Source: Developed by Drs. Zain Mcmullen, Zita Zee, Conner jeffries nd colleagues, with an educational nicky from [employer]. Review of Systems Narrative Review of Systems - Genitourinary: Reports intermittent dysuria and urinary frequency. - Musculoskeletal: Denies back pain symptoms during the visit. Physical exam (Primary Care) Vital Signs: Last Vital Signs Pulse 76 10/12/25 07:44 BP 130/62 10/12/25 07:44 Pulse Ox 96 10/12/25 07:44 Oxygen Delivery Method Room Air 10/12/25 07:44 BMI result Body Mass Index 49.9 Tobacco/Smoking Status: Tobacco use Status Tobacco use date assessed 07/27/25 10/12/25 07:50 Patient Tobacco Use Status Former Tobacco user 10/12/25 07:50 Tobacco use type Cigarette 10/12/25 07:50 e-Cigarette/Vaping Use Never Used 10/12/25 07:50 Thrive Assessment: Date of Thrive Assessment Date Thrive assessed 06/29/25 10/12/25 07:50 Currently or been in a relationship where the following occur: No concerns re ported Narrative Physical Exam General: Cooperative and healthy appearing Nutritional Appearance: Well nourished Orientation/consciousness: Patient oriented x3 Limitations: No limitations Head: Normal to inspection General: Appearance normal, both eyes and all related structures Neck: Normal visual inspection Chest: Normal palpation of entire chest wall Respiratory: Normal respiratory effort Neurology: Patient oriented x3 Coding Level of Care Code Est Pt Level 4 (35346) Complex visit Add On G2211 Diagnoses Type 2 diabetes mellitus without complication E11.9 Assessment & Plan Assessment & Plan (1) Type 2 diabetes mellitus without complication: Code(s): E11.9 - Type 2 diabetes mellitus without complications Category: Medical Plan Plan - A 14-day course of Bactrim twice daily will be prescribed for the urinary tract infection. - The recent urinalysis report will be sent to the patient's urologist, Dr. Oliveira. - The patient will proceed with the scheduled prostate biopsy on October 31. - Continue current diabetes medications, metformin and pioglitazone. - If the biopsy indicates cancer, pioglitazone will be discontinued, and a switch to Trulicity will be considered in November with the new insurance plan. - Discussion regarding a potential back procedure will be deferred until after the urological issue is resolved. - The patient was counseled on diet and exercise. - The patient declined the influenza vaccination. - A follow-up appointment is scheduled in three months. Discussion Notes I reviewed the patient's recent lab work, noting the findings on his urinalysis which show evidence of white and red blood cells. Although his urinary symptoms are currently bearable, given the upcoming prostate biopsy, I have prescribed a 14-day course of Bactrim. I explained that while his current urinalysis results are not a contraindication to proceeding with the biopsy, it is prudent to treat with antibiotics. I will forward his results to his urologist. We also discussed his diabetes management. I advised him to continue his metformin and pioglitazone but noted that if the biopsy confirms prostate cancer, we will need to discontinue pioglitazone. We will reassess his medication in November, potentially starting Trulicity under his new prescription plan. I emphasized the importance of diet and exercise, specifically recommending walking five times a week and adopting a low-carbohydrate, low-sugar diet. We agreed to revisit his back issues after the urology evaluation is complete. I have scheduled a follow-up visit in three months. Patient Instructions - Take Bactrim (a sulfa antibiotic) twice a day for the next 14 days to treat a possible urinary infection. - Your urinalysis report will be sent to your urologist, Dr. Oliveira. - Proceed with your scheduled prostate biopsy on October 31. - Continue taking your current diabetes medications, metformin and pioglitazone. - Be aware that your medication may change depending on the results of your biopsy. - We will discuss your back problems after your urology issue is taken care of. - Try to walk for one hour, five times a week. You can take rests as needed during your walk. - Follow a healthy diet by eating two meals a day, with at least 10 of your 14 weekly meals being healthy. - Eat more vegetables and less pasta, bread, and sugar. Fruits like berries and apples are good choices. - Schedule a follow-up appointment in three months. Medications: New sulfamethoxazole-trimethoprim 800-160 mg (Bactrim DS) 1 tab PO BID 28 tabs 0RF 14 days
== END 2025-10-12 08:25 | disposition home or self-care (01) ==
LOC: HO.HMCH 07:34
PROVIDERS: PCP Internal Medicine; Visit Provider Internal Medicine
DX: E11.9 Type 2 diabetes mellitus without complications (principal)